=== PATIENT | male | born 1955 | race Caucasian/White ===

== ENCOUNTER 2019-03-07 07:23 | Day surgery (SDC) | payer BC ==
[2019-03-06 09:55] LABS: Absolute Lymphocytes (CBC) 1.5 K/uL (0.7-4.9); Absolute Monocytes 0.6 K/uL (0.1-1.3); Absolute Neutrophil 5.5 K/uL (1.8-8.0); Eosinophils % 1.6 % (0-4.4); Hematocrit 43.3 % (39.6-49.0); Lymphocytes % 19.1 % (15.3-44.8); MPV 8.5 fL (7.6-11.3); Monocytes % 8.3 % (3.3-12.3); RBC Red Blood Cell Count 4.85 M/uL (4.33-5.43)
[2019-03-06 09:57] LABS: Protime INR 1.19
[2019-03-06 10:17] LABS: Potassium 4.5 mmol/L (3.5-5.1)
--- NOTE | 2019-03-06 10:31 | RAD REPORT ---
EXAM DESCRIPTION: RAD - Chest Pa And Lat (2 Views) - 03/06/2019 10:05 am CLINICAL HISTORY: left heart cath Chest pain. COMPARISON: Chest Pa And Lat (2 Views) dated 05/19/2017; CHEST PA AND LAT 2 VIEW dated 08/17/2008; [facility] SINGLE VIEW dated 08/17/2008; CHEST PA AND LAT 2 VIEW dated 08/13/2008 FINDINGS: The lungs are emphysematous but clear of acute infiltrate. The heart is moderately enlarge d in size. No displaced fractures. IMPRESSION: Prominent COPD.
--- OUTSIDE RECORDS SUMMARY | 2019-03-07 07:27 | XMS REPORT | Clinical Summary ---
:1955 Author Organization [facility] Address [address] [place] [address] Care Team Providers Name Role Phone Jarad Jiménez MD Primary Care Provider Allergies Active Allergy Reactions Severity Noted Date Comments Hydrocodone Rash Low 04/19/2016 Medications Medication Sig Dispensed Refills Start End Status Date Date acetaminophen-codeine TAKE 1 TABLET BY 0 Active (TYLENOL WITH CODEINE MOUTH EVERY 4 HOURS 018 #3) 300-30 mg per NEEDED FOR PAIN NO tablet ALCOHOL albuterol (PROAIR ProAir HFA 90 mcg/actuation aerosol inhaler 0 Active HFA,PROVENTIL INHALE 2 PUFFS BY MOUTH EVERY 6 HOURS NEEDED HFA,VENTOLIN HFA) 90 mcg/actuation inhaler apixaban (ELIQUIS) Take 5 mg by mouth. 0 Active 2.5 mg tablet atorvastatin Take 40 mg by mouth. 0 Active (LIPITOR) 40 MG tablet DULoxetine (CYMBALTA) duloxetine 60 mg capsule,delayed release 0 Active 60 MG capsule TAKE 1 CAPSULE BY MOUTH EVERY MORNING furosemide (LASIX) 40 TAKE 1 TABLET BY 0 Active mg tablet MOUTH EVERY DAY IN 018 THE MORNING hydroCHLOROthiazide hydrochlorothiazide 0 Active (HYDRODIURIL) 25 MG 25 mg tablet tablet losartan (COZAAR) 100 TAKE 1 TABLET BY 1 Active MG tablet MOUTH EVERY DAY IN 018 THE MORNING montelukast Take 10 mg by mouth 3 Active (SINGULAIR) 10 mg every morning. 018 tablet rosuvastatin Take 20 mg by mouth 0 Active (CRESTOR) 20 MG daily. tablet methocarbamol Take 1 tablet (750 mg 90 tablet 0 09/26/2 10/23 Discontinued (ROBAXIN-750) 750 MG total) by mouth every tablet 8 (eight) hours for 30 days. traMADol (ULTRAM) 50 Take 1 tablet (50 mg 30 tablet 0 09/26/10/05 Discontinued mg tablet total) by mouth every 6 (six) hours as needed for moderate pain for up to 10 days. traMADol (ULTRAM) 50 Take 1 tablet (50 mg 30 tablet 0 10/12/10/22 mg tablet total) by mouth every 6 (six) hours as needed for moderate pain for up to 10 days. methocarbamol TAKE 1 TABLET (750 MG 90 tablet 0 10/23/11/22 (ROBAXIN) 750 MG TOTAL) BY MOUTH EVERY tablet 8 (EIGHT) HOURS FOR 30 DAYS. traMADol (ULTRAM) 50 Take 1 tablet (50 mg 40 tablet 0 11/03 mg tablet total) by mouth every 4 (four) hours as needed for moderate pain for up to 40 doses. acetaminophen-codeine Take 1-2 tablets by 30 tablet 0 11/13/2 11/13 Discontinued (TYLENOL WITH CODEINE mouth every 4 (four) #3) 300-30 mg per hours as needed for tablet moderate pain for up to 14 days. acetaminophen-codeine Take 1-2 tablets by 30 tablet 0 11/13/11/27 (TYLENOL WITH CODEINE mouth every 4 (four) #3) 300-30 mg per hours as needed for tablet moderate pain for up to 30 doses. methylPREDNISolone Take 1 tablet (4 mg 21 tablet 0 12/11/12/17 (MEDROL DOSEPAK) 4 mg total) by mouth See tablet Admin Instructions for 6 days. Use as directed by package instructions Active Problems Problem Noted Date Closed fracture of proximal end of left humerus with routine healing 2018 Closed displaced fracture of surgical neck of left humerus 09/26/2018 Encounters Date Type Specialty Care Team Description 12/11/2018 Office Visit Orthopedic Surgery Nelson Grady Closed fracture of MD Rafael proximal end of left humerus with routine healing, unspecified fracture morphology, subsequent encounter (Primary Dx) 11/13/2018 Office Visit Orthopedic Surgery Nelson Grady Closed fracture of MD Rafael proximal end of left humerus with routine healing, unspecified fracture morphology, subsequent encounter (Primary Dx) 10/27/2018 Orders Only Orthopedic Surgery Anna Chen MA 10/23/2018 Refill Orthopedic Surgery Nelson Grady MD 10/16/2018 Office Visit Orthopedic Surgery Nelson Grady Left shoulder pain, unspecified chronicity (Primary Dx); MD Rafael Closed fracture of proximal end of left humerus with routine healing, unspecified fracture morphology, subsequent encounter 10/05/2018 Refill Orthopedic Surgery Nelson Grady MD 09/26/2018 Hospital Encounter Radiology Nelson Grady MD 09/26/2018 Office Visit Orthopedic Surgery Nelosn Grady Closed displaced fracture of surgical neck of left humerus, unspecified fracture morphology, initial encounter (Primary Dx); MD Rafael Left elbow pain; Acute pain of left shoulder after 03/06/2018 Family History Medical History Relation Name Comments Diabetes Father Diabetes Mother Relation Name Status Comments Father Alive Mother Alive Social History Tobacco Use Types Packs/Day Years Used Date Current Every Day Smoker Cigarettes 0.25 Smokeless Tobacco: Never Used Alcohol Use Drinks/Week oz/Week Comments Yes 2 Cans of beer 1.2 Alcohol Habits Answer Date Recorded How often do you have a drink containing alcohol? Never 09/26/2018 How many drinks containing alcohol do you have on a typical Not asked day when you are drinking? How often do you have six or more drinks on one occasion? Not asked Sex Assigned at Date Recorded Not on file Job Start Date Occupation Industry Not on file Not on file Not on file Travel History Travel Start Travel End No recent travel history available. Last Filed Vital Signs Vital Sign Reading Time Taken Blood Pressure - - Pulse - - Temperature - - Respiratory Rate - - Oxygen Saturation - - Inhaled Oxygen Concentration - - Weight 147 kg (323 lb) 12/11/2018 1:47 PM [employer] Height 193 cm (6' 4") 12/11/2018 1:47 PM [employer] Body Mass Index 39.32 12/11/2018 1:47 PM [employer] Plan of Treatment Health Maintenance Due Date Last Done Comments COLON CANCER SCREENING 2007 SHINGLES VACCINES (#1) 2007 INFLUENZA VACCINE 05/10/2019 08/10/2015 Procedures Procedure Name Priority Date/Time Associated Comments Diagnosis KS ARTHROCENTESIS Routine 11/13/2018 2:10 Closed fracture of Results for this ASPIR&/INJ MAJOR PM [employer] proximal end of procedure are in JT/BURSA W/O US left humerus with the results routine healing, section. unspecified fracture morphology, subsequent encounter XR SHOULDER 2+ VW LEFT Routine 11/13/2018 1:17 Closed fracture of Results for this PM [employer] proximal end of procedure are in left humerus with the results routine healing, section. unspecified fracture morphology, subsequent encounter XR SHOULDER 2+ VW LEFT Routine 10/16/2018 2:01 Left shoulder pain, Results for this PM [employer] unspecified procedure are in chronicity the results section. XR SHOULDER 2+ VW LEFT Routine 09/26/2018 2:29 Acute pain of left Results for this PM [employer] shoulder procedure are in the results section. XR ELBOW 3+ VW LEFT Routine 09/26/2018 2:28 Left elbow pain Results for this PM [employer] procedure are in the results section. XR UPPER EXTREMITY Routine 09/14/2018 3:42 Results for this EXTERNAL STUDY PM [employer] procedure are in the results section. after 03/06/2018 Results Large Joint Arthrocentesis: shoulder, L subacromial bursa (11/13/2018 2:10 PM [employer]) Narrative Performed At Nelson Grady MD 11/14/20184:55 PM Large Joint Arthrocentesis: shoulder, L subacromial bursa Consent given by: patient Site marked: site marked Timeout: Immediately prior to procedure a time out was called to verify the correct patient, procedure, equipment, senior administrator support and site/side marked as required Supporting Documentation Indications: pain Procedure Details Preparation: Patient was prepped and draped in the usual sterile fashion Ultrasound guided: no Location: shoulder - L subacromial bursa Left side: Needle size: 22 G Approach: posterior Left shoulder medications administered: 80 mg methylPREDNISolone acetate 40 mg/mL; 2 mL lidocaine 10 mg/mL (1 %); 2 mL bupivacaine 0.5 % (5 mg/mL) Patient tolerance: patient tolerated the procedure well with no immediate complications XR Shoulder 2+ Vw Left (11/13/2018 1:17 PM [employer])Only the most recent of3 resultswithin the time period is included. Specimen Narrative Performed At X-rays left shoulder reveal a varus impacted surgical neck fracture of the [facility] humerus which is unchanged in position and healing with abundant callus. Performing Organization Address City/State/Zipcode Phone Number [facility] [address] [place] [address] XR Elbow 3+ Vw Left (09/26/2018 2:28 PM [employer]) Specimen Narrative Performed At X-rays of the left elbow reveal no obvious fracture or dislocation. [facility] Performing Organization Address City/[facility]/Zipcode Phone Number DIAS[facility] BROWNANT [address] [place] [address] XR Upper Extremity External Study (09/14/2018 3:42 PM [employer]) Specimen Narrative Performed At This exam was not acquired at a [facility] facility and has not been [facility] interpreted by a [facility] Provider.The exam was imported into our imaging system for comparisons purposes. Performing Organization Address City/[facility] Phone Number [facility] [address] [place] [address] after 03/06/2018 Insurance Payer Benefit Plan / Subscriber ID Effective Dates Phone Address Type Group MEDICARE MEDICARE PART A xxxxxxxxxxx 2018-Present [place], [place] Medicare AND B BCBS BCBS CHOICE xxxxxxxxxxxx 2018-Present PPO PPO/[employer] PPO Advance Directives Patient has advance care planning documents on file. For more information, please contact:Diogenes Richards[address] [place] [address]
--- OUTSIDE RECORDS SUMMARY | 2019-03-07 07:29 | XMS REPORT | CCD ---
:1955 Author Organization [facility] Team Providers Name Role Phone Delmar [employer] Provider Allergies, Adverse Reactions, Alerts Substance Reaction Status NKDA Active
--- OUTSIDE RECORDS SUMMARY | 2019-03-07 07:29 | XMS REPORT | Continuity of Care Document ---
:1955 Author Organization Interface Problems Problem Status Onset Classification Date Comments Source Date Reported CARAL TUNNEL Active 02/05/20 [facility] CARAL TUNNEL Active 02/05/20 [facility] NEW ONSET A FIB Active 11/26/19 [facility] W/CHEST PAIN [address] [place] [address] 729.5 - PAIN IN Active 02/01/20 [facility] Asthma Resolved Problem 10/16/2016 [facility] [place] Diabetes Resolved Problem 10/16/2016 [facility] [place] Hypertension Resolved Problem 10/16/2016 [facility] [place] CHEST PAIN NOS Active [facility] CARPAL TUNNEL Active [facility] RIGHT HAND Active [facility] [place] NERVE DAMAGE [place] Medications Medication Details Route Status Patient Ordering Order Source Instructions Provider Date rivaroxaban 20 mg, 1 tab, Inactive 11/28[facility] Route: PO, 2014 Medical Drug form: Center TAB, QPM, Start date: 11/28/14 17:00:00, Duration: 30 day, Stop date: 12/27/14 17:00:00Notes: (Same as: Xarelto) Administer with food albuterol CFC free 1 puff, Active 11/28[facility] 90 mcg/inh INHALATION, 2015 Medical inhalation aerosol Q4H, for Center with adapter wheezing, # 1 ea, 3 Refill(s) benzocaine-menthol 1 lozenge, Inactive 11/28[facility] topical Route: MUCOUS 2015 Medical MEM, Drug [place] Form: CARLOS, Q4H, PRN Cough, Start date: 11/28/14 11:57:00, Duration: 30 day, Stop date: 12/28/14 11:56:00Notes: Cepacol lozenges Dispense 1 box=16 lozenges (Same As: Cepacol Lozenges) rivaroxaban 20 mg 20 mg=1 tab, Active [place] oral tablet PO, QPM, # 30 2014 Medical tab, 3 Center Refill(s) 24 HR Metoprolol 50 mg=1 tab, Active [facility] Tartrate 50 MG PO, BID, # 60 2014 Medical Extended Release tab, 3 Center Tablet [Toprol] Refill(s) lisinopril 5 mg oral 5 mg=1 tab, Active [facility] tablet PO, Daily, # 2014 Medical 30 tab, 3 Center Refill(s) Hydrochlorothiazide 25 mg=1 tab, Active [place] 25 MG Oral Tablet PO, Daily, # 2015 Medical 30 tab, 3 Center Refill(s) Aspirin 81 MG 81 mg=1 tab, Active [facility] Enteric Coated PO, Daily, # 2014 Medical Tablet 30 tab, 3 Center Refill(s) atorvastatin 40 mg 40 mg=1 tab, Active [facility] oral tablet PO, Bedtime, # 2014 Medical 30 tab, 3 Center Refill(s) Guaifen DM 1 tab, Route: Inactive [facility] PO, Dosing 2014 Medical Weight Center 134.318, kg, Q4H, PRN as needed for cough, Start date: 11/28/14 11:45:00, Duration: 30 day, Stop date: 12/28/14 11:44:00 Hydrochlorothiazide 25 mg, 1 tab, Inactive [facility] Route: PO, 2014 Medical Drug form: Center TAB, Daily, Dosing Weight 134.318, kg, Start date: 11/28/14 10:30:00, Duration: 30 day, Stop date: 12/28/14 9:00:00Notes: (Same as: Hydrodiuril) With food. Xarelto 20 mg, Route: Inactive [facility] PO, QPM, 2014 Medical Dosing Weight Center 134.318, kg, Priority: NOW, Start date: 11/28/14 9:44:00, Duration: 30 day, Stop date: 12/27/14 17:00:00 Magnesium Oxide 500 500 mg, Route: No Longer [place] MG Oral Tablet PO, Drug form: Active 2014 Medical TAB, Daily, Center Dosing Weight 134.318, kg, Start date: 11/28/14 9:00:00, Duration: 30 day, Stop date: 12/27/14 9:00:00 Furosemide 20 MG 20 mg, 1 tab, Inactive [facility] Oral Tablet [Lasix] Route: PO, 2014 Medical Drug form: [place] TAB, QAM, Dosing Weight 134.318, kg, Start date: 11/28/14 9:00:00, Duration: 30 day, Stop date: 12/27/14 9:00:00Notes: (Same as: Lasix) May cause GI upset. Give with food or milk. 24 HR Metoprolol 50 mg, 1 tab, Inactive [facility] Tartrate 50 MG Route: PO, 2014 Medical Extended Release Drug form: [place] Tablet [Toprol] ERTAB, BID, Start date: 11/28/14 9:00:00, Duration: 30 day, Stop date: 12/27/14 17:00:00Notes: (Same as: Toprol XL) May split tab, but do not crush. Mag-Ox 400 400 mg, 1 tab, Inactive [facility] Route: PO, 2014 Medical Drug form: [place] TAB, ONCE, Start date: 11/27/14 10:28:00, Stop date: 11/27/14 10:28:00Notes: (Same as: Mag-Ox 400) Magnesium oxide [id number] elemental magnesium Dose=____mg magnesium oxide (___mg elemental magnesium) Magnesium Oxide 500 500 mg, Route: Inactive [facility] MG Oral Tablet PO, Drug form: 2014 Medical TAB, ONCE, [facility] Dosing Weight 134.318, kg, Start date: 11/27/14 10:23:00, Stop date: 11/27/14 10:23:00 Lasix 20 mg, 2 mL, Inactive [facility] Route: IVP, 2014 Medical Drug form: [facility] INJ, ONCE, Dosing Weight 134.318, kg, Start date: 11/27/14 10:20:00, Stop date: 11/27/14 10:20:00Notes: (Same as: Lasix) heparin additive 500 mL, Rate: No Longer [facility] 25,000 unit [14 29.96 ml/hr, Active 2014 Medical unit/kg/hr] + Premix Infuse over: [facility] Diluent Dextrose 5% 16.7 hr, 500 mL Route: IV, Dosing Weight 107 kg, Total Volume: 500 mL, Start date: 11/27/14 10:14:00, Duration: 30 day, Stop date: 12/27/14 10:13:00 aspirin 81 mg, 1 tab, No Longer [facility] Route: PO, Active 2014 Medical Drug form: [place] ECTAB, Daily, Dosing Weight 134.318, kg, Priority: Routine, Start date: 11/27/14 9:00:00, Duration: 30 day, Stop date: 12/26/14 9:00:00Notes: Do not crush or chew. (Same As: Ecotrin) Dextromethorphan 10 mL, Route: No Longer [facility] Hydrobromide 2 MG/ML PO, Dosing Active 2014 Medical / Guaifenesin 40 Weight Center MG/ML Oral Solution 134.318, kg, Q4H, Start date: 11/27/14 0:00:00, Duration: 30 day, Stop date: 12/26/14 20:00:00 Dextromethorphan 10 mL, Route: No Longer [facility] Hydrobromide 2 MG/ML PO, Drug Form: Active 2014 Medical / Guaifenesin 40 SYRP, Dosing Center MG/ML Oral Solution Weight 134.318, kg, Q4H, PRN Cough, Start date: 11/26/14 23:00:00, Stop date: 12/26/14 23:59:00Notes: (dextromethorp modi-guaifenesi n 10-100mg/5ml 10 ml oral SOLN ud) (Same as: Robitussin DM) codeine-guaiFENesin 5 mL, Route: Inactive [facility] PO, Drug Form: 2014 Medical LIQ, Q6H, PRN Center Cough, Start date: 11/26/14 20:20:39, Stop date: 12/26/14 20:14:00Notes: (Same As: Louisitussin AC) codeine-guaiFENesin 5 mL, Route: Inactive [facility] PO, Drug Form: 2014 Medical LIQ, Q6H, PRN Center Cough, Start date: 11/26/14 20:15:00, Duration: 30 day, Stop date: 12/26/14 20:14:00Notes: (Same As: Robitussin AC) benzonatate 200 mg, Route: Inactive [place] PO, Drug form: 2014 Medical CAP, TID, Center Dosing Weight 134.318, kg, PRN Cough, Start date: 11/26/14 20:09:00, Duration: 30 day, Stop date: 12/26/14 20:08:00 Robitussin-DM 10 mL, Route: Inactive [place] PO, Drug Form: 2014 Medical SYRP, Q6H, PRN Center Cough, Start date: 11/26/14 17:17:00, Duration: 30 day, Stop date: 12/26/14 17:16:00Notes: (dextromethorp modi-guaifenesi n 10-100mg/5ml 10 ml oral SOLN ud) (Same as: Robitussin DM) Dextromethorphan / 30 mg, Route: Inactive [place] Phenylephrine PO, Drug form: 2014 Medical CAP, Q8H, Center Dosing Weight 134.318, kg, PRN Cough, Start date: 11/26/14 16:41:00, Duration: 30 day, Stop date: 12/26/14 16:40:00 heparin, porcine 7,500 unit, No Longer [place] 1.5 mL, Route: Active 2014 Medical SUB-Q, Drug Center form: INJ, Q8H, Dosing Weight 134.318, kg, Start date: 11/26/14 16:00:00, Duration: 30 day, Stop date: 12/26/14 8:00:00Notes: porcine heparin Xopenex 0.63 mg, 3 mL, No Longer [place] Route: NEB, Active 2014 Medical Drug form: Center SOLN, PRN, Dosing Weight 134.318, kg, PRN Respiratory Protocol, Start date: 11/26/14 15:58:00, Duration: 30 day, Stop date: 12/26/14 16:57:00Notes: SEE RT DOCUMENTATION (Same as:Xopenex) Non-Formulary Ipratropium 0.5 mg, 2.5 No Longer [place] mL, Route: Active 2014 Medical NEB, Drug Center form: SOLN, PRN, Dosing Weight 134.318, kg, PRN Respiratory Protocol, Start date: 11/26/14 15:58:00, Duration: 30 day, Stop date: 12/26/14 16:57:00Notes: SEE RT DOCUMENTATION (Same as:Atrovent) Lisinopril 5 mg, 1 tab, Inactive [place] Route: PO, 2014 Medical Drug form: Center TAB, ONCE, Dosing Weight 134.318, kg, Priority: NOW, Start date: 11/26/14 15:53:00, Stop date: 11/26/14 15:53:00Notes: (Same as: Prinivil, Zestril) Adenosine 112.8271 mg, Inactive [place] 37.61 mL, 2014 Medical Route: IVP, [facility] Drug form: INJ, ONCE, Dosing Weight 134.318, kg, Priority: Routine, Start date: 11/26/14 15:50:00, Stop date: 11/26/14 15:50:00Notes: For diagnostic use only. (Same as: Adenoscan) Tylenol 650 mg, 2 tab, No Longer [place] Route: PO, Active 2014 Medical Drug form: [facility] TAB, Q6H, Dosing Weight 134.318, kg, PRN Pain Score 1-3, Start date: 11/26/14 14:26:00, Duration: 30 day, Stop date: 12/26/14 14:25:00Notes: Do not exceed 4 gm/day. (Same as: Tylenol) Lipitor 80 mg, 1 tab, No Longer [facility] Route: PO, Active 2014 Medical Drug form: Center TAB, Bedtime, Dosing Weight 134.318, kg, Priority: NOW, Start date: 11/26/14 12:56:00, Duration: 30 day, Stop date: 12/25/14 21:00:00Notes: Same as Lipitor Albuterol 0.833 3 ml, Route: Inactive [facility] MG/ML / Ipratropium INHALATION, 2014 Medical Elfrida 0.167 MG/ML Drug Form: [facility] Inhalant Solution SOLN, Dosing [DuoNeb] Weight 134.318, kg, PRN, PRN Respiratory Protocol, Start date: 11/26/14 12:51:00, Duration: 30 day, Stop date: 12/26/14 13:50:00Notes: (Same as: Duoneb) Lisinopril 5 mg, 1 tab, No Longer [place] Route: PO, Active 2014 Medical Drug form: Center TAB, Daily, Dosing Weight 134.318, kg, Priority: NOW, Start date: 11/26/14 12:51:00, Stop date: 12/26/14 9:00:00Notes: (Same as: Prinivil, Zestril) metoprolol tartrate 25 mg, 1 tab, No Longer [place] Route: PO, Active 2014 Medical Drug form: [place] TAB, Q6H, Dosing Weight 134.318, kg, Priority: NOW, Start date: 11/26/14 12:51:00, Stop date: 12/26/14 12:00:00Notes: (Same as: Lopressor) atorvastatin 80 mg, 1 tab, Inactive [place] Route: PO, 2014 Medical Drug form: Center TAB, Bedtime, Dosing Weight 134.318, kg, Priority: NOW, Start date: 11/26/14 12:51:00, Duration: 30 day, Stop date: 12/25/14 21:00:00Notes: Same as Lipitor aspirin 81 mg, Route: Inactive [facility] PO, Drug form: 2014 Medical ECTAB, Daily, Center Dosing Weight 134.318, kg, Priority: NOW, Start date: 11/26/14 12:51:00, Duration: 30 day, Stop date: 12/26/14 9:00:00 Albuterol 0.09 1 puff, No Longer [place] MG/ACTUAT Inhalant INHALATION, Active 2014 Medical Solution QID, wheezing, Center # 1 ea, 0 Refill(s) Allergies, Adverse Reactions, Alerts Substance Category Reaction Severity Reaction Status Date Comments Source type Reported HYDROcodone Assertion Drug Active [facility] allergy [place] Immunizations Immunization Date Given Site Status Last Updated Comments Source Results Order Name Results Value Reference Date Interpretation Comments Source Range CHEM PANEL Phosphorus 3.5 mg/dL 2.5 - 4.5 11/28 [facility] Center CHEM PANEL Magnesium Lvl 1.9 mg/dL 1.8 - 2.4 11/28 [facility] ELECTROLYTE AGAP 10.3 meq/L 10.0 - 11/28 [facility] S 20.0 [facility] ELECTROLYTE Calcium Lvl 8.4 mg/dL 8.5 - 10.5 11/28 [facility] ELECTROLYTE eGFR 99 11/28 1Result Comment: The eGFR is calculated using the CKD-EPI formula. In most young, healthy individuals the eGFR will be > 90 mL/min/1.73m2. The eGFR declines with age. An eGFR of 60-89 may be normal in [facility] mL/min/1.7 some populations, particularly the elderly, for whom the CKD-EPI formula has not been extensively validated. Use of the eGFR is not recommended in the following populations: [address] Individuals with unstable creatinine concentrations, including patients and those with serious co-morbid conditions. Patients with extremes in muscle mass or diet. The data above are obtained from the National Kidney Disease Education Program (NKDEP) which additionally recommends that when the eGFR is used in patients with extremes of body mass index for purposes of drug dosing, the eGFR should be multiplied by the estimated BMI. ELECTROLYTE CO2 27 meq/L 24 - 32 11/28 [facility] ELECTROLYTE Chloride Lvl 106 meq/L 95 - 109 11/28 [facility] ELECTROLYTE Potassium Lvl 4.3 meq/L 3.5 - 5.1 11/28 [facility] ELECTROLYTE Creatinine 0.8 mg/dL 0.5 - 1.4 11/28 [facility] ELECTROLYTE Sodium Lvl 139 meq/L 135 - 145 11/28 [facility] ELECTROLYTE BUN 18 mg/dL 7 - 22 11/28 [facility] ELECTROLYTE Glucose Lvl 132 mg/dL 70 - 99 11/28 4Interpretive Data: Adult reference range values reflect the clinical guidelines [facility] of [employer]. [facility] HEMATOLOGY PTT 54.7 s 22.9 - 11/28 11Interpretiv [facility] 35.8 e Data: [facility] Therapeutic Range: 57 - 92 Seconds HEMATOLOGY Segs 63.9 % 45.0 - 11/28 [facility] 75.0 [facility] HEMATOLOGY Eosinophils 1.5 % 0.0 - 4.0 11/28 [facility] HEMATOLOGY Monocytes 8.1 % 2.0 - 12.0 11/28 [facility] HEMATOLOGY Basophils 1.1 % 0.0 - 1.0 11/28 [facility] HEMATOLOGY Eosinophils # 0.1 K/CMM 0.0 - 0.5 11/28 [facility] HEMATOLOGY Monocytes # 0.6 K/CMM 0.0 - 0.8 11/28 [facility] HEMATOLOGY Lymphocytes 25.4 % 20.0 - 11/28 40.0 [facility] HEMATOLOGY Basophils # 0.1 K/CMM 0.0 - 0.2 11/28 [facility] HEMATOLOGY Lymphocytes # 1.9 K/CMM 1.0 - 5.5 11/28 [facility] HEMATOLOGY Segs-Bands # 4.8 K/CMM 1.5 - 8.1 11/28 [facility] HEMATOLOGY MPV 8.9 fL 7.4 - 10.4 11/28 [facility] HEMATOLOGY Platelet 178 K/CMM 133 - 450 11/28 [facility] HEMATOLOGY RDW 16.5 % 11.5 - 11/28 14.5 [facility] HEMATOLOGY Hgb 14.1 g/dL 14.0 - 11/28 18.0 [facility] HEMATOLOGY MCHC 33.4 g/dL 32.0 - 11/28 36.0 [facility] HEMATOLOGY MCH 30.3 pg 27.0 - 11/28 31.0 [facility] HEMATOLOGY RBC 4.65 M/CMM 4.70 - 11/28 6.10 [facility] HEMATOLOGY WBC 7.5 K/CMM 3.7 - 10.4 11/28 [facility] HEMATOLOGY MCV 90.9 fL 80.0 - 11/28 94.0 [facility] HEMATOLOGY Hct 42.3 % 42.0 - 11/28 54.0 [facility] HEMATOLOGY INR 1.07 0.85 - 11/28 8Interpretive Data: RECOMMENDED RANGES FOR PROTIME INR: [facility] 1. 2.0-3.0 for most medical and surgical thromboembolic states. Medical 2.5-3.5 for artificial heart valves and recurrent embolism. Center INR SHOULD BE USED ONLY FOR PATIENTS ON STABLE ANTICOAGULANT THERAPY. HEMATOLOGY PT 13.9 s 12.0 - 11/28 [facility] 14.7 [facility] PARATHYROID Ca Ion WB 1.12 1.05 - 11/28 [facility] PROFILE mMol/L 1. [facility] PARATHYROID Ca Norm WB 1.10 1.05 - 11/28 [facility] PROFILE mMol/L 1. [facility] HEMATOLOGY PTT 66.5 s 22.9 - 11/28 12Interpretiv [facility] 35.8 e Data: [facility] Heparin [place] Therapeutic Range: 57 - 92 Seconds HEMATOLOGY PTT 71.0 s 22.9 - 11/27 13Interpretiv [facility] 35.8 e Data: [facility] Therapeutic Range: 57 - 92 Seconds HEMATOLOGY INR 1.08 0.85 - 11/27 9Interpretive Data: RECOMMENDED RANGES FOR PROTIME INR: [facility] . 2.0-3.0 for most medical and surgical thromboembolic states. Medical 2.5-3.5 for artificial heart valves and recurrent embolism. Center INR SHOULD BE USED ONLY FOR PATIENTS ON STABLE ANTICOAGULANT THERAPY. HEMATOLOGY PT 14.1 s 12.0 - 11/27 [facility] 14.7 [facility] CARDIAC Troponin-T null 0.000 - 11/27 [facility] ENZYMES 0.100 /2014 [facility] CARDIAC Total CK 60 unit/L 12 - 191 11/27 [facility] ENZYMES /2014 [facility] CARDIAC Troponin-I null 0.00 - 11/27 [facility] ENZYMES 0.40 [facility] CHEM PANEL Phosphorus 4.2 mg/dL 2.5 - 4.5 11/27 [facility] CHEM PANEL Magnesium Lvl 1.8 mg/dL 1.8 - 2.4 11/27 [facility] ELECTROLYTE AGAP 10.5 meq/L 10.0 - 11/27 [facility] S 20.0 [facility] ELECTROLYTE eGFR 83 11/27 2Result Comment: The eGFR is calculated using the CKD-EPI formula. In most young, healthy individuals the eGFR will be > 90 mL/min/1.73m2. The eGFR declines with age. An eGFR of 60-89 may be normal in [facility] mL/min/1. some populations, particularly the elderly, for whom the CKD-EPI formula has not been extensively validated. Use of the eGFR is not recommended in the following populations: Medical 3m2 Center Individuals with unstable creatinine concentrations, including patients and those with serious co-morbid conditions. Patients with extremes in muscle mass or diet. The data above are obtained from the National Kidney Disease Education Program (NKDEP) which additionally recommends that when the eGFR is used in patients with extremes of body mass index for purposes of drug dosing, the eGFR should be multiplied by the estimated BMI. ELECTROLYTE CO2 26 meq/L 24 - 32 11/27 [facility] ELECTROLYTE Calcium Lvl 8.3 mg/dL 8.5 - 10.5 11/27 [facility] ELECTROLYTE Chloride Lvl 106 meq/L 95 - 109 11/27 [facility] ELECTROLYTE Sodium Lvl 138 meq/L 135 - 145 11/27 [facility] 2014 [facility] ELECTROLYTE BUN 18 mg/dL 7 - 22 11/27 [facility]2014 [facility] ELECTROLYTE Glucose Lvl 130 mg/dL 70 - 99 11/27 5Interpretive Data: Adult reference range values reflect the clinical guidelines [facility] [employer]. [facility] ELECTROLYTE Potassium Lvl 4.5 meq/L 3.5 - 5.1 11/27 [facility] ELECTROLYTE Creatinine 1.0 mg/dL 0.5 - 1.4 11/27 [facility] HEMATOLOGY PT 14.3 s 12.0 - 11/27 [facility] 14.7 [facility] HEMATOLOGY INR 1.10 0.85 - 11/27 10Interpretive Data: RECOMMENDED RANGES FOR PROTIME INR: [facility] . 2.0-3.0 for most medical and surgical thromboembolic states. Medical 2.5-3.5 for artificial heart valves and recurrent embolism. Center INR SHOULD BE USED ONLY FOR PATIENTS ON STABLE ANTICOAGULANT THERAPY. HEMATOLOGY Eosinophils # 0.1 K/CMM 0.0 - 0.5 11/27 [facility] HEMATOLOGY Segs-Bands # 9.2 K/CMM 1.5 - 8.1 11/27 [facility]2014 [facility] HEMATOLOGY Lymphocytes # 0.7 K/CMM 1.0 - 5.5 11/27 [facility]2014 [facility] HEMATOLOGY Monocytes # 0.5 K/CMM 0.0 - 0.8 11/27 2014 [facility] HEMATOLOGY Eosinophils 0.8 % 0.0 - 4.0 11/27 [facility] HEMATOLOGY Monocytes 4.8 % 2.0 - 12.0 11/27 [facility] HEMATOLOGY Lymphocytes 6.7 % 20.0 - 11/27 [place] 40.0 /2014 [facility] HEMATOLOGY Segs 87.7 % 45.0 - 11/27 [place] 75.0 /2014 [facility] HEMATOLOGY MPV 8.9 fL 7.4 - 10.4 11/27 [facility] HEMATOLOGY Platelet 204 K/CMM 133 - 450 11/27 [facility] HEMATOLOGY RDW 16.9 % 11.5 - 11/27 [place] 14.5 /2014 [facility] HEMATOLOGY MCH 30.2 pg 27.0 - 11/27 [place] 31.0 /2014 [facility] HEMATOLOGY MCV 90.9 fL 80.0 - 11/27 [place] 94.0 /2014 [facility] HEMATOLOGY Hct 43.7 % 42.0 - 11/27 [place] 54.0 /2014 [facility] HEMATOLOGY MCHC 33.2 g/dL 32.0 - 11/27 [place] 36.0 [facility] HEMATOLOGY Hgb 14.5 g/dL 14.0 - 11/27 [place] 18.0 [facility] HEMATOLOGY RBC 4.81 M/CMM 4.70 - 11/27 [place] 6.10 /2014 [facility] HEMATOLOGY WBC 10.5 K/CMM 3.7 - 10.4 11/27 [facility] PARATHYROID Ca Norm WB 1.05 1.05 - 11/27 [facility] PROFILE mMol/L 1. [facility] PARATHYROID Ca Ion WB 1.08 1.05 - 11/27 [facility] PROFILE mMol/L 1. [facility] URINE AND UA Color Yellow Yellow 11/26 [facility] *NA* Center (11/26/14 5:04 PM) URINE AND UA Glucose Negative Negative 11/26 [facility] STOOL mg/dL mg/dL /2014 [facility] URINE AND UA Spec Grav 1.012 <=1.030 11/26 [facility] URINE AND UA Turbidity Clear Clear 11/26 [facility] (11/26/14 5:04 PM) [place] URINE AND UA pH 6.0 5.0 - 8.0 11/26 [facility] URINE AND UA Protein 30 mg/dL Negative 11/26 [facility] STOOL mg/dL /2014 [facility] URINE AND UA <=1.0 0.1 - 1.0 11/26 [facility] Urobilinogen mg/dL /2014 [facility] URINE AND UA Sq Epi None Seen 11/26 [facility] /2014 [facility] URINE AND UA WBC 14 /HPF 0 - [address] [facility] /2014 [facility] URINE AND UA Leuk Est Moderate Negative 11/26 [facility] *ABN* [place] (11/26/14 5:04 PM) URINE AND UA RBC 3 /HPF 0 - [address] [facility] /2014 [facility] URINE AND UA Mucus Few /LPF None Seen 11/26 [facility] STOOL /LPF /2014 [facility] URINE AND UA Ketones Negative Negative 11/26 [facility] STOOL mg/dL mg/dL [facility] URINE AND UA Bili Negative Negative 11/26 [facility] *NA* [place] (11/26/14 5:04 PM) URINE AND UA Blood Negative Negative 11/26 [facility] [facility] /2014 [facility] (11/26/14 5:04 PM) [place] URINE AND UA Nitrite Negative Negative 11/26 [facility] (11/26/14 5:04 PM) [place] CARDIAC Total CK 55 unit/L 12 - 191 11/26 [facility] /2014 [facility] CARDIAC Troponin-T null 0.000 - 11/26 [facility] ENZYMES 0.100 /2014 [facility] CARDIAC Troponin-I null 0.00 - 11/26 [facility] ENZYMES 0.40 /2014 [facility] DRUG SCREEN U Methadone Negative Negative 11/26 [facility] *NA* [facility] (11/26/14 1:25 PM) DRUG SCREEN U Propoxyph Negative Negative 11/26 [facility] *NA* [place] (11/26/14 1:25 PM) DRUG SCREEN UDS Note See Note 7 11/26 7Interpretive Data: Drugs reported as positive have not been confirmed by a second method and should be used for medical purposes only. To order Medical *NA* confirmation, contact laboratory. [facility] (11/26/14 1:25 PM) note: Below are cut-off concentrations for all urine drugs of abuse performed in the laboratory. Some drugs listed in the table may not be included in this panel. Description Cut-off concentration Amphetamine 1000 ng/mL Barbiturates 200 ng/mL Benzodiazepines 300 ng/mL Cocaine metabolites 300 ng/mL Opiates 300 ng/mL Phencyclidine 25 ng/mL Propoxyphene 300 ng/mL Marijuana metabolites 50 ng/mL Methadone 300 ng/mL Urine alcohol 20 mg/dL DRUG SCREEN U Benzodia Negative Negative 11/26 [facility]* [facility] (11/26/14 1:25 PM) DRUG SCREEN U Gema Scr Negative Negative 11/26 [facility]* [facility] (11/26/14 1:25 PM) DRUG SCREEN U Cannab Scr Negative Negative 11/26 [facility] (11/26/14 1:25 PM) DRUG SCREEN U Cocaine Scr Negative Negative 11/26 [facility] (11/26/14 1:25 PM) DRUG SCREEN U Amph Scr Negative Negative 11/26 [facility] (11/26/14 1:25 PM) DRUG SCREEN U Opiate Scr Negative Negative 11/26 [facility] (11/26/14 1:25 PM) DRUG SCREEN U Phencyc Scr Negative Negative 11/26 [facility] (11/26/14 1:25 PM) ELECTROLYTE AGAP 11.0 meq/L 10.0 - 11/26 [facility] S 20.0 [facility] ELECTROLYTE eGFR 99 11/26 3Result Comment: The eGFR is calculated using the CKD-EPI formula. In most young, healthy individuals the eGFR will be > 90 mL/min/1.73m2. The eGFR declines with age. An eGFR of 60-89 may be normal in [facility] S mL/min/1.7 /2014 some populations, particularly the elderly, for whom the CKD-EPI formula has not been extensively validated. Use of the eGFR is not recommended in the following populations: [place] [address] [facility] Individuals with unstable creatinine concentrations, including patients and those with serious co-morbid conditions. Patients with extremes in muscle mass or diet. The data above are obtained from the National Kidney Disease Education Program (NKDEP) which additionally recommends that when the eGFR is used in patients with extremes of body mass index for purposes of drug dosing, the eGFR should be multiplied by the estimated BMI. ELECTROLYTE CO2 27 meq/L 24 - 32 11/26 [facility] ELECTROLYTE Calcium Lvl 9.1 mg/dL 8.5 - 10.5 11/26 [facility] ELECTROLYTE Creatinine 0.8 mg/dL 0.5 - 1.4 11/26 [facility] Lvl [facility] ELECTROLYTE Sodium Lvl 136 meq/L 135 - 145 11/26 [facility] ELECTROLYTE Potassium Lvl 4.0 meq/L 3.5 - 5.1 11/26 [facility] ELECTROLYTE Chloride Lvl 102 meq/L 95 - 109 11/26 [facility] ELECTROLYTE BUN 10 mg/dL 7 - 22 11/26 [facility] ELECTROLYTE Glucose Lvl 128 mg/dL 70 - 99 11/26 6Interpretive Data: Adult reference range values reflect the clinical guidelines of the [place] [employer]. [facility] HEMATOLOGY Platelet 185 K/CMM 133 - 450 11/26 [facility] HEMATOLOGY RDW 16.7 % 11.5 - 11/26 14.5 [facility] HEMATOLOGY MPV 8.5 fL 7.4 - 10.4 11/26 [facility] HEMATOLOGY MCHC 33.1 g/dL 32.0 - 11/26 36.0 [facility] HEMATOLOGY RBC 5.17 M/CMM 4.70 - 11/26 [place] 6.10 [facility] HEMATOLOGY Hct 46.9 % 42.0 - 11/26 54.0 [facility] HEMATOLOGY Hgb 15.5 g/dL 14.0 - 11/26 18.0 [facility] HEMATOLOGY MCV 90.7 fL 80.0 - 11/26 [place] 94.0 [facility] HEMATOLOGY MCH 30.0 pg 27.0 - 11/26 31.0 [facility] HEMATOLOGY WBC 7.3 K/CMM 3.7 - 10.4 11/26 [facility] HEMATOLOGY Segs-Bands # 6.7 K/CMM 1.5 - 8.1 11/26 [facility] HEMATOLOGY Basophils 0.1 % 0.0 - 1.0 11/26 [facility] HEMATOLOGY Monocytes 1.4 % 2.0 - 12.0 11/26 [facility] HEMATOLOGY Eosinophils 0.1 % 0.0 - 4.0 11/26 [facility] HEMATOLOGY Lymphocytes 6.3 % 20.0 - 11/26 [facility] 40.0 [facility] HEMATOLOGY Segs 92.1 % 45.0 - 11/26 [facility] 75.0 [facility] HEMATOLOGY Monocytes # 0.1 K/CMM 0.0 - 0.8 11/26 [facility] HEMATOLOGY Lymphocytes # 0.5 K/CMM 1.0 - 5.5 11/26 [facility] LIPIDS VLDL 11 11/26 [facility] LIPIDS Trig 53 mg/dL <=149 11/26 [facility] mg/dL [facility] LIPIDS Chol 162 mg/dL <=199 11/26 [facility] mg/dL [facility] LIPIDS HDL 69 mg/dL >=61 mg/dL 11/26 [facility] LIPIDS CHD Risk 2.35 4.00 - 11/26 [facility] 7.30 [facility] LIPIDS LDL 82 mg/dL <=99 mg/dL 11/26 [facility] (Calculated) [facility] SPECIAL Hgb A1C 5.8 % <=5.6 % 11/26 [facility] CHEMISTRY [facility] THYROID TSH 0.537 0.360 - 11/26 [facility] PANEL uIU/mL 3.740 [facility] Chest 1view Chest 1view EXAM: XR CHEST ONE VIEW: 11/26 - [facility] DX DX /2014 - [facility] This report was dictated by a Track Grinder Operator/Fellow. I have personally reviewed the images as Center well as the Resident's interpretation and agree with the findings. DATE: 2014-11-26 13:24:00 Read by: Dipak Giles MD Resident: Dipak Giles MD Dictated Date/time: 11/26/14 13:59 Electronically Signed by: Dashawn Gusman 11/26/14 17:01 FINAL REPORT INDICATION: Abnormal chest sounds TECHNIQUE: frontal portable chest radiograph COMPARISON: None IMPRESSION: Borderline cardiomegaly. The lungs are clear. There is no pleural effusion or pneumothorax. There is mild rightward curvature of the midthoracic spine. There are multiple healed right-side d rib fractures. Some surgical clips overlie the left upper abdomen. Vital Signs Vital Sign Value Date Comments Source Systolic (mm Hg) 146 11/28/2014 [facility] Diastolic (mm Hg) 81 11/28/2014 [facility] Temperature Oral (F) 96.8 F 11/28/2014 [facility] Systolic (mm Hg) 151 11/28/2014 [facility] Diastolic (mm Hg) 96 11/28/2014 [facility] Systolic (mm Hg) 110 11/28/2014 [facility] Diastolic (mm Hg) 95 11/28/2014 [facility] Temperature Oral (F) 97.3 F 11/28/2014 [facility] Respitory Rate 22 11/28/2014 [facility] Respitory Rate 20 11/28/2014 [facility] Temperature Oral (F) 96.8 F 11/28/2014 [facility] Respitory Rate 18 11/28/2014 [facility] BMI Calculated 35.11 11/26/2014 [facility] Height 195.58 cm 11/26/2014 [facility] Weight 134.318 11/26/2014 [facility] Encounters Location Location Encounter Encounter Reason Attending ADM DC Status Source Details Type Number For Provider Date Date Visit OD [id number] 729.5 - NEREYDA 02/02 Active OPID PAIN [facility] Inpatient [id number] [facility] Sim 11/26 11/28 [facility] /2014 [facility] OP Therapy [id number] [place] 02/04 03/06 [facility] OP Therapy [id number] Nelson 03/09 04/08 [facility] Therapy [id number] Norman 09/14 10/14 [facility] /2015 [place] Procedures Procedure Code Date Perfomer Comments Source Appendectomy [id number] [facility] Cholecystectomy [id number] [facility] Gastric bypass [id number] [id number] [id number] [facility] Cholecystectomy [id number] [facility] Gastric bypass [id number] [facility] Inguinal [id number] [id number] [facility] [place] Cholecystectomy [id number] [facility] [place] Gastric bypass [id number] [facility] [place] Inguinal [id number] [facility] [place] herniorrhaphy [place]
--- OUTSIDE RECORDS SUMMARY | 2019-03-07 07:30 | XMS REPORT | Summary of Care ---
:1955 Author Organization [facility] Address [address] [address] [place] [address]- Encounter HQ Encntr_alias(FIN) [id number] Date(s): 09/14/16 - 10/13/16 [facility] [address] [address]- Discharge Disposition: Home or Self Care Attending Physician: Norman Floyd DO Vital Signs No data available for this section Problem List Condition Effective Dates Status Health Status Informant Asthma(Confirmed) Resolved Diabetes(Confirmed) Resolved Hypertension(Confirmed) Resolved Allergies, Adverse Reactions, Alerts Substance Reaction Severity Status HYDROcodone Active Medications No data available for this section Results No data available for this section Immunizations No data available for this section Procedures Procedure Date Related Diagnosis Body Site Appendectomy Cholecystectomy Gastric bypass Inguinal herniorrhaphy Social History Social History Type Response Substance Abuse Use: None. Sexual Sexually active: Yes. Exercise Exercise duration: 0. Employment/School Status: Employed. 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 Alcohol Current, Type Beer. Frequency: Daily. Alcohol use interferes with work or home: No. Drinks more than intended: No. Others hurt by drinking: No. Smoking Status Current every day smoker; Type: Cigarettes; Tobacco use per day : .5; Number of years: 11; Exposure to Tobacco Smoke None; Cigarette Smoking Last 365 Days Yes; Reg Smoking Cessation Counseling No Assessment and Plan No data available for this section
--- OUTSIDE RECORDS SUMMARY | 2019-03-07 07:30 | XMS REPORT | Summary of Care ---
:1955 Author Encounter YRIS Monk(ANY) [id number] Date(s): 11/26/14 - 11/28/[address] Professional Services provided by [facility] [place] [address]- Discharge Disposition: Home Physician Attending: Eimlie Montemayor MD Physician Admitting: Emilie Montemayor MD Vital Signs Most recent to oldest 1 2 3 [Reference Range]: Height 195.58 cm (11/26/14 11:14 AM) Temperature Oral [96.4-99.1 96.8 DegF 97.3 DegF 96.8 DegF DegF] (11/28/14 11:30 AM) (11/28/14 7:25 AM) (11/28/14 12:00 AM) Blood Pressure [90-140/60-90 146/81 mmHg 151/96 mmHg 110/95 mmHg mmHg] *HI* *HI* (11/28/14 8:00 AM) (11/28/14 12:16 PM) (11/28/14 10:00 AM) Respiratory Rate [14-20 22 BRMIN 20 BRMIN 18 BRMIN BRMIN] *HI* (11/28/14 12:00 AM) (11/27/14 7:25 PM) (11/28/14 4:00 AM) Weight 134.318 kg (11/26/14 11:14 AM) Body Mass Index 35.11 m2 (11/26/14 11:14 AM) Problem List Condition Effective Dates Status Health Status Informant Asthma(Confirmed) Resolved Diabetes(Confirmed) Resolved Hypertension(Confirmed) Resolved Allergies, Adverse Reactions, Alerts Substance Reaction Severity Status HYDROcodone Active Medications adenosine 112.8271 mg, 37.61 mL, Route: IVP, Drug form: INJ, ONCE, Dosing Weight 134.318, kg, Priority: Routine, Start date: 11/26/14 15:50:00, Stop date: 11/26/14 15:50: 00 Notes: For diagnostic use only.(Same as: Adenoscan) Start Date: 11/26/14 Stop Date: 11/26/14 Status: Orderedalbuterol 90 mcg/inh inhalation aerosol 1 puff, INHALATION, QID, wheezing, # 1 ea, 0 Refill(s) Start Date: 11/26/14 Stop Date: 11/28/14 Status: Discontinuedalbuterol CFC free 90 mcg/inh inhalation aerosol with adapter 1 puff, INHALATION, Q4H, for wheezing, # 1 ea, 3 Refill(s) Start Date: 11/28/14 Stop Date: 03/28/15 Status: Orderedaspirin 81 mg, 1 tab, Route: PO, Drug form: ECTAB, Daily, Dosing Weight 134.318, kg, Priority: Routine, Start date: 11/27/14 9:00:00, Duration: 30 day, Stop date: 9:00:00 Notes: Do not crush or chew.(Same As: Ecotrin) Start Date: 11/27/14 Stop Date: 11/28/14 Status: Discontinuedaspirin 81 mg, Route: PO, Drug form: ECTAB, Daily, Dosing Weight 134.318, kg, Priority: NOW, Start date: 11/26/14 12:51:00, Duration: 30 day, Stop date: 12/26/14 9:00: 00 Start Date: 11/26/14 Stop Date: 11/26/14 Status: Discontinuedaspirin 81 mg tablet, enteric coated 81 mg=1 tab, PO, Daily, # 30 tab, 3 Refill(s) Start Date: 11/28/14 Stop Date: 03/28/15 Status: Orderedatorvastatin 80 mg, 1 tab, Route: PO, Drug form: TAB, Bedtime, Dosing Weight 134.318, kg, Priority: NOW, Start date: 11/26/14 12:51:00, Duration: 30 day, Stop date: 12/25 21:00:00 Notes: Same as Lipitor Start Date: 11/26/14 Stop Date: 11/26/14 Status: Discontinuedatorvastatin 40 mg oral tablet 40 mg=1 tab, PO, Bedtime, # 30 tab, 3 Refill(s) Start Date: 11/28/14 Stop Date: 03/28/15 Status: Orderedbenzocaine-menthol topical 1 lozenge, Route: MUCOUS MEM, Drug Form: CARLOS, Q4H, PRN Cough, Start date: 11:57:00, Duration: 30 day, Stop date: 12/28/14 11:56:00 Notes: Cepacol lozengesDispense 1 box=16 lozenges (Same As: Cepacol Lozenges) Start Date: 11/28/14 Stop Date: 11/28/14 Status: Discontinuedbenzonatate 200 mg, Route: PO, Drug form: CAP, TID, Dosing Weight 134.318, kg, PRN Cough, Start date: 11/26/14 20:09:00, Duration: 30 day, Stop date: 12/26/14 20:08:00 Start Date: 11/26/14 Stop Date: 11/26/14 Status: Discontinuedcodeine-guaiFENesin 5 mL, Route: PO, Drug Form: LIQ, Q6H, PRN Cough, Start date: 11/26/14 20:15:00, Duration: 30 day, Stop date: 12/26/14 20:14:00 Notes: (Same As: Louisitussin AC) Start Date: 11/26/14 Stop Date: 11/26/14 Status: Discontinuedcodeine-guaiFENesin 5 mL, Route: PO, Drug Form: LIQ, Q6H, PRN Cough, Start date: 11/26/14 20:20:39, Stop date: 12/26/14 20:14:00 Notes: (Same As: Robitussin AC) Start Date: 11/26/14 Stop Date: 11/26/14 Status: Discontinueddextromethorphan 30 mg, Route: PO, Drug form: CAP, Q8H, Dosing Weight 134.318, kg, PRN Cough, Start date: 11/26/14 16:41:00, Duration: 30 day, Stop date: 12/26/14 16:40:00 Start Date: 11/26/14 Stop Date: 11/26/14 Status: Discontinueddextromethorphan-guaiFENesin 10 mg-200 mg/5 mL oral liquid 10 mL, Route: PO, Dosing Weight 134.318, kg, Q4H, Start date: 11/27/14 0:00:00, Duration: 30 day, Stop date: 12/26/14 20:00:00 Start Date: 11/27/14 Stop Date: 11/26/14 Status: Canceleddextromethorphan-guaiFENesin 10 mg-200 mg/5 mL oral liquid 10 mL, Route: PO, Drug Form: SYRP, Dosing Weight 134.318, kg, Q4H, PRN Cough, Start date: 11/26/14 23:00:00, Stop date: 12/26/14 23:59:00 Notes: (dextromethorphan-guaifenesin 10-100mg/5ml 10 ml oral SOLN ud) (Same as: Robitussin DM) Start Date: 11/26/14 Stop Date: 11/28/14 Status: DiscontinuedDuoNeb inhalation solution 3 ml, Route: INHALATION, Drug Form: SOLN, Dosing Weight 134.318, kg, PRN, PRN Respiratory Protocol, Start date: 11/26/14 12:51:00, Duration: 30 day, Stop date : 12/26/14 13:50:00 Notes: (Same as: Duoneb) Start Date: 11/26/14 Stop Date: 11/26/14 Status: DiscontinuedGuaifen DM 1 tab, Route: PO, Dosing Weight 134.318, kg, Q4H, PRN as needed for cough, Start date: 11/28/14 11:45:00, Duration: 30 day, Stop date: 12/28/14 11:44:00 Start Date: 11/28/14 Stop Date: 11/28/14 Status: Deletedheparin 7,500 unit, 1.5 mL, Route: SUB-Q, Drug form: INJ, Q8H, Dosing Weight 134.318, kg , Start date: 11/26/14 16:00:00, Duration: 30 day, Stop date: 12/26/14 8:00:00 Notes: porcine heparin Start Date: 11/26/14 Stop Date: 11/27/14 Status: Discontinuedheparin additive 25,000 unit [14 unit/kg/hr] + Premix Diluent Dextrose 5% 500 mL 500 mL, Rate: 29.96 ml/hr, Infuse over: 16.7 hr, Route: IV, Dosing Weight 107 kg , Total Volume: 500 mL, Start date: 11/27/14 10:14:00, Duration: 30 day, Stop date: 12/27/14 10:13:00 Start Date: 11/27/14 Stop Date: 11/28/14 Status: Discontinuedhydrochlorothiazide 25 mg, 1 tab, Route: PO, Drug form: TAB, Daily, Dosing Weight 134.318, kg, Start date: 11/28/14 10:30:00, Duration: 30 day, Stop date: 12/28/14 9:00:00 Notes: (Same as: Hydrodiuril) With food. Start Date: 11/28/14 Stop Date: 11/28/14 Status: Discontinuedhydrochlorothiazide 25 mg oral tablet 25 mg=1 tab, PO, Daily, # 30 tab, 3 Refill(s) Start Date: 11/28/14 Stop Date: 03/28/15 Status: Orderedipratropium 0.5 mg, 2.5 mL, Route: NEB, Drug form: SOLN, PRN, Dosing Weight 134.318, kg, PRN Respiratory Protocol, Start date: 11/26/14 15:58:00, Duration: 30 day, Stop date: 12/26/14 16:57:00 Notes: SEE RT DOCUMENTATION(Same as:Atrovent) Start Date: 11/26/14 Stop Date: 11/28/14 Status: DiscontinuedLasix 20 mg, 2 mL, Route: IVP, Drug form: INJ, ONCE, Dosing Weight 134.318, kg, Start date: 11/27/14 10:20:00, Stop date: 11/27/14 10:20:00 Notes: (Same as: Lasix) Start Date: 11/27/14 Stop Date: 11/27/14 Status: CompletedLasix 20 mg oral tablet 20 mg, 1 tab, Route: PO, Drug form: TAB, QAM, Dosing Weight 134.318, kg, Start date: 11/28/14 9:00:00, Duration: 30 day, Stop date: 12/27/14 9:00:00 Notes: (Same as: Lasix) May cause GI upset. Give with food or milk. Start Date: 11/28/14 Stop Date: 11/28/14 Status: DiscontinuedLipitor 80 mg, 1 tab, Route: PO, Drug form: TAB, Bedtime, Dosing Weight 134.318, kg, Priority: NOW, Start date: 11/26/14 12:56:00, Duration: 30 day, Stop date: 12/25 21:00:00 Notes: Same as Lipitor Start Date: 11/26/14 Stop Date: 11/28/14 Status: Discontinuedlisinopril 5 mg, 1 tab, Route: PO, Drug form: TAB, Daily, Dosing Weight 134.318, kg, Priority: NOW, Start date:11/26/14 12:51:00, Stop date: 12/26/14 9:00:00 Notes: (Same as: Milton Beestrisandy) Start Date: 11/26/14 Stop Date: 11/28/14 Status: Discontinuedlisinopril 5 mg, 1 tab, Route: PO, Drug form: TAB, ONCE, Dosing Weight 134.318, kg, Priority: NOW, Start date: 11/26/14 15:53:00, Stop date: 11/26/14 15:53:00 Notes: (Same as: Milton Beestril) Start Date: 11/26/14 Stop Date: 11/26/14 Status: Completedlisinopril 5 mg oral tablet 5 mg=1 tab, PO, Daily, # 30 tab, 3 Refill(s) Start Date: 11/28/14 Stop Date: 03/28/15 Status: OrderedMag-Ox 400 400 mg, 1 tab, Route: PO, Drug form: TAB, ONCE, Start date: 11/27/14 10:28:00, Stop date: 11/27/14 10:28:00 Notes: (Same as: Mag-Ox 400)Magnesium oxide [id number] elemental magnesiumDose= ____mg magnesium oxide (___mg elemental magnesium) Start Date: 11/27/14 Stop Date: 11/27/14 Status: Completedmagnesium oxide base 500 mg oral tablet 500 mg, Route: PO, Drug form: TAB, ONCE, Dosing Weight 134.318, kg, Start date: 11/27/14 10:23:00, Stop date: 11/27/14 10:23:00 Start Date: 11/27/14 Stop Date: 11/27/14 Status: Deletedmagnesium oxide base 500 mg oral tablet 500 mg, Route: PO, Drug form: TAB, Daily, Dosing Weight 134.318, kg, Start date : 11/28/14 9:00:00, Duration: 30 day, Stop date: 12/27/14 9:00:00 Start Date: 11/28/14 Stop Date: 11/27/14 Status: Canceledmetoprolol tartrate 25 mg, 1 tab, Route: PO, Drug form: TAB, Q6H, Dosing Weight 134.318, kg, Priority: NOW, Start date: 11/26/14 12:51:00, Stop date: 12/26/14 12:00:00 Notes: (Same as: Lopressor) Start Date: 11/26/14 Stop Date: 11/28/14 Status: Discontinuedrivaroxaban 20 mg, 1 tab, Route: PO, Drug form: TAB, QPM, Start date: 11/28/14 17:00:00, Duration: 30 day, Stop date: 12/27/14 17:00:00 Notes: (Same as: Xarelto)Administer with food Start Date: 11/28/14 Stop Date: 11/28/14 Status: Discontinuedrivaroxaban 20 mg oral tablet 20 mg=1 tab, PO, QPM, # 30 tab, 3 Refill(s) Start Date: 11/28/14 Stop Date: 03/28/15 Status: OrderedRobitussin-DM 10 mL, Route: PO, Drug Form: SYRP, Q6H, PRN Cough, Start date: 11/26/14 17:17:00 , Duration: 30 day, Stop date: 12/26/14 17:16:00 Notes: (dextromethorphan-guaifenesin 10-100mg/5ml 10 ml oral SOLN ud) (Same as: Robitussin DM) Start Date: 11/26/14 Stop Date: 11/26/14 Status: DiscontinuedToprol-XL 50 mg oral tablet, extended release 50 mg=1 tab, PO, BID, # 60 tab, 3 Refill(s) Start Date: 11/28/14 Stop Date: 03/28/15 Status: OrderedToprol-XL 50 mg oral tablet, extended release 50 mg, 1 tab, Route: PO, Drug form: ERTAB, BID, Start date: 11/28/14 9:00:00, Duration: 30 day, Stopdate: 12/27/14 17:00:00 Notes: (Same as: Toprol XL) May split tab, but do not crush. Start Date: 11/28/14 Stop Date: 11/28/14 Status: DiscontinuedTylenol 650 mg, 2 tab, Route: PO, Drug form: TAB, Q6H, Dosing Weight 134.318, kg, PRN Pain Score 1-3, Start date: 11/26/14 14:26:00, Duration: 30 day, Stop date: 14:25:00 Notes: Do not exceed 4 gm/day. (Same as: Tylenol) Start Date: 11/26/14 Stop Date: 11/28/14 Status: DiscontinuedXarelto 20 mg, Route: PO, QPM, Dosing Weight 134.318, kg, Priority: NOW, Start date: 9:44:00, Duration: 30 day, Stop date: 12/27/14 17:00:00 Start Date: 11/28/14 Stop Date: 11/28/14 Status: DeletedXopenex 0.63 mg, 3 mL, Route: NEB, Drug form: SOLN, PRN, Dosing Weight 134.318, kg, PRN Respiratory Protocol, Start date: 11/26/14 15:58:00, Duration: 30 day, Stop date : 12/26/14 16:57:00 Notes: SEE RT DOCUMENTATION (Same as:Xopenex)Non-Formulary Start Date: 11/26/14 Stop Date: 11/28/14 Status: Discontinued Results ELECTROLYTES Most recent to oldest 1 2 3 [Reference Range]: Sodium Lvl [135-145 mEq/L] 139 mEq/L 138 mEq/L 136 mEq/L (11/28/14 4:33 AM) (11/27/14 12:29 AM) (11/26/14 1:25 PM) Potassium Lvl [3.5-5.1 4.3 mEq/L 4.5 mEq/L 4.0 mEq/L mEq/L] (11/28/14 4:33 AM) (11/27/14 12:29 AM) (11/26/14 1:25 PM) Chloride Lvl [95-109 mEq/L] 106 mEq/L 106 mEq/L 102 mEq/L (11/28/14 4:33 AM) (11/27/14 12:29 AM) (11/26/14 1:25 PM) CO2 [24-32 mEq/L] 27 mEq/L 26 mEq/L 27 mEq/L (11/28/14 4:33 AM) (11/27/14 12:29 AM) (11/26/14 1:25 PM) AGAP [10.0-20.0 mEq/L] 10.3 mEq/L 10.5 mEq/L 11.0 mEq/L (11/28/14 4:33 AM) (11/27/14 12:29 AM) (11/26/14 1:25 PM) CHEM PANEL Most recent to oldest 1 2 3 [Reference Range]: Creatinine Lvl [0.5-1.4 0.8 mg/dL 1.0 mg/dL 0.8 mg/dL mg/dL] (11/28/14 4:33 AM) (11/27/14 12:29 AM) (11/26/14 1:25 PM) eGFR 99 mL/min/1.73m2 1 83 mL/min/1.73m2 2 99 mL/min/1.73m2 3 *NA* *NA* *NA* (11/28/14 4:33 AM) (11/27/14 12:29 AM) (11/26/14 1:25 PM) BUN [7-22 mg/dL] 18 mg/dL 18 mg/dL 10 mg/dL (11/28/14 4:33 AM) (11/27/14 12:29 AM) (11/26/14 1:25 PM) Glucose Lvl [70-99 mg/dL] 132 mg/dL 4 130 mg/dL 5 128 mg/dL 6 *HI* *HI* *HI* (11/28/14 4:33 AM) (11/27/14 12:29 AM) (11/26/14 1:25 PM) Calcium Lvl [8.5-10.5 8.4 mg/dL 8.3 mg/dL 9.1 mg/dL mg/dL] *LOW* *LOW* (11/26/14 1:25 PM) (11/28/14 4:33 AM) (11/27/14 12:29 AM) Phosphorus [2.5-4.5 mg/dL] 3.5 mg/dL 4.2 mg/dL (11/28/14 4:33 AM) (11/27/14 12:29 AM) Magnesium Lvl [1.8-2.4 1.9 mg/dL 1.8 mg/dL mg/dL] (11/28/14 4:33 AM) (11/27/14 12:29 AM) 1Result Comment: The eGFR is calculated using the CKD-EPI formula. In most young , healthy individualsthe eGFR will be >90 mL/min/1.73m2. The eGFR declines with age. An eGFR of 60-89 may be normal in some populations, particularly the elderly, for whom the CKD-EPI formula has not been extensively validated. Use of the eGFR is not recommended in the following populations: Individuals with unstable creatinine concentrations, including patients and those with serious co-morbid conditions. Patients with extremes in muscle mass or diet. The data above are obtained from the National Kid[employer] Disease Education Program ( NKDEP) which additionally recommends that when the eGFR is used in patients with extremes of body mass index for purposesof drug dosing, the eGFR should be multiplied by the estimated BMI.2Result Comment: The eGFR is calculated using the CKD-EPI formula. In most young, healthy individualsthe eGFR will be >90 mL/ min/1.73m2. The eGFR declines with age. An eGFR of 60-89 may be normal in some populations, particularly the elderly, for whom the CKD-EPI formula has not been extensively validated. Use of the eGFR is not recommended in the following populations: Individuals with unstable creatinine concentrations, including patients and those with serious co-morbid conditions. Patients with extremes in muscle mass or diet. The data above are obtained from the National Kid[employer] Disease Education Program ( NKDEP) which additionally recommends that when the eGFR is used in patients with extremes of body mass index for purposesof drug dosing, the eGFR should be multiplied by the estimated BMI.3Result Comment: The eGFR is calculated using the CKD-EPI formula. In most young, healthy individualsthe eGFR will be >90 mL/ min/1.73m2. The eGFR declines with age. An eGFR of 60-89 may be normal in some populations, particularly the elderly, for whom the CKD-EPI formula has not been extensively validated. Use of the eGFR is not recommended in the following populations: Individuals with unstable creatinine concentrations, including patients and those with serious co-morbid conditions. Patients with extremes in muscle mass or diet. The data above are obtained from the National Kidney Disease Education Program ( NKDEP) which additionally recommends that when the eGFR is used in patients with extremes of body mass index for purposesof drug dosing, the eGFR should be multiplied by the estimated BMI.4Interpretive Data: Adult reference range values reflect the clinical guidelines of the [place].5Interpretive Data: Adult reference range values reflect the clinical guidelines of the [place].6Interpretive Data: Adult reference range values reflect the clinical guidelines of the [place].CARDIAC ENZYMES Most recent to oldest [Reference Range]: 1 2 3 Total CK [12-191 unit/L] 60 unit/L 55 unit/L (11/27/14 12:29 AM) (11/26/14 1:25 PM) Troponin-T [0.000-0.100 ng/mL] <0.010 ng/mL <0.010 ng/mL (11/27/14 12:29 AM) (11/26/14 1:25 PM) Troponin-I [0.00-0.40 ng/mL] <0.02 ng/mL <0.02 ng/mL (11/27/14 12:29 AM) (11/26/14 1:25 PM) LIPIDS Most recent to oldest [Reference Range]: 1 2 3 CHD Risk [4.00-7.30] 2.35 *LOW* (11/26/14 1:25 PM) Chol [<=199 mg/dL] 162 mg/dL (11/26/14 1:25 PM) Trig [<=149 mg/dL] 53 mg/dL (11/26/14 1:25 PM) HDL [>=61 mg/dL] 69 mg/dL (11/26/14 1:25 PM) LDL (Calculated) [<=99 mg/dL] 82 mg/dL (11/26/14 1:25 PM) VLDL 11 *NA* (11/26/14 1:25 PM) SPECIAL CHEMISTRY Most recent to oldest [Reference Range]: 1 2 3 Hgb A1C [<=5.6 %] 5.8 % *HI* (11/26/14 1:25 PM) THYROID PANEL Most recent to oldest [Reference Range]: 1 2 3 TSH [0.360-3.740 uIU/mL] 0.537 uIU/mL (11/26/14 1:25 PM) PARATHYROID PROFILE Most recent to oldest [Reference Range]: 1 2 3 Ca Ion WB [1.05-1.25 mMol/L] 1.12 mMol/L 1.08 mMol/L (11/28/14 4:33 AM) (11/27/14 12:29 AM) Ca Norm WB [1.05-1.25 mMol/L] 1.10 mMol/L 1.05 mMol/L (11/28/14 4:33 AM) (11/27/14 12:29 AM) DRUG SCREEN Most recent to oldest [Reference Range]: 1 2 3 U Methadone Scr [Negative] Negative *NA* (11/26/14 1:25 PM) U Propoxyph Scr [Negative] Negative *NA* (11/26/14 1:25 PM) U Amph Scr [Negative] Negative *NA* (11/26/14 1:25 PM) U Gema Scr [Negative] Negative *NA* (11/26/14 1:25 PM) U Benzodia Scr [Negative] Negative *NA* (11/26/14 1:25 PM) U Cocaine Scr [Negative] Negative *NA* (11/26/14 1:25 PM) U Opiate Scr [Negative] Negative *NA* (11/26/14 1:25 PM) U Phencyc Scr [Negative] Negative *NA* (11/26/14 1:25 PM) U Cannab Scr [Negative] Negative *NA* (11/26/14 1:25 PM) UDS Note See Note 7 *NA* (11/26/14 1:25 PM) 7Interpretive Data: Drugs reported as positive have not been confirmed by a second method and should be used for medical purposes only. To order confirmation, contact laboratory. note: Below are cut-off concentrations for all urine drugs of abuse performed in the laboratory. Some drugs listed in the table may not be included in this panel. Description Cut-off concentration Amphetamine 1000 ng/mL Barbiturates 200 ng/mL Benzodiazepines 300 ng/mL Cocaine metabolites 300 ng/mL Opiates 300 ng/mL Phencyclidine 25 ng/mL Propoxyphene 300 ng/mL Marijuana metabolites 50 ng/mL Methadone 300 ng/mL Urine alcohol 20 mg/dLURINE AND STOOL Most recent to oldest [Reference Range]: 1 2 3 UA Turbidity [Clear] Clear (11/26/14 5:04 PM) UA Color [Yellow] Yellow *NA* (11/26/14 5:04 PM) UA pH [5.0-8.0] 6.0 (11/26/14 5:04 PM) UA Spec Grav [<=1.030] 1.012 (11/26/14 5:04 PM) UA Glucose [Negative mg/dL] Negative mg/dL *NA* (11/26/14 5:04 PM) UA Blood [Negative] Negative (11/26/14 5:04 PM) UA Ketones [Negative mg/dL] Negative mg/dL *NA* (11/26/14 5:04 PM) UA Protein [Negative mg/dL] 30 mg/dL *ABN* (11/26/14 5:04 PM) UA Urobilinogen [0.1-1.0 mg/dL] <=1.0 mg/dL *NA* (11/26/14 5:04 PM) UA Bili [Negative] Negative *NA* (11/26/14 5:04 PM) UA Leuk Est [Negative] Moderate *ABN* (11/26/14 5:04 PM) UA Nitrite [Negative] Negative (11/26/14 5:04 PM) UA WBC [0-5 /HPF] 14 /HPF *HI* (11/26/14 5:04 PM) UA RBC [0-2 /HPF] 3 /HPF *HI* (11/26/14 5:04 PM) UA Sq Epi None Seen *NA* (11/26/14 5:04 PM) UA Mucus [None Seen /LPF] Few /LPF *NA* (11/26/14 5:04 PM) HEMATOLOGY Most recent to oldest 1 2 3 [Reference Range]: WBC [3.7-10.4 K/CMM] 7.5 K/CMM 10.5 K/CMM 7.3 K/CMM (11/28/14 4:33 AM) *HI* (11/26/14 1:25 PM) (11/27/14 12:29 AM) RBC [4.70-6.10 M/CMM] 4.65 M/CMM 4.81 M/CMM 5.17 M/CMM *LOW* (11/27/14 12:29 AM) (11/26/14 1:25 PM) (11/28/14 4:33 AM) Hgb [14.0-18.0 g/dL] 14.1 g/dL 14.5 g/dL 15.5 g/dL (11/28/14 4:33 AM) (11/27/14 12:29 AM) (11/26/14 1:25 PM) Hct [42.0-54.0 %] 42.3 % 43.7 % 46.9 % (11/28/14 4:33 AM) (11/27/14 12:29 AM) (11/26/14 1:25 PM) MCV [80.0-94.0 fL] 90.9 fL 90.9 fL 90.7 fL (11/28/14 4:33 AM) (11/27/14 12:29 AM) (11/26/14 1:25 PM) MCH [27.0-31.0 pg] 30.3 pg 30.2 pg 30.0 pg (11/28/14 4:33 AM) (11/27/14 12:29 AM) (11/26/14 1:25 PM) MCHC [32.0-36.0 g/dL] 33.4 g/dL 33.2 g/dL 33.1 g/dL (11/28/14 4:33 AM) (11/27/14 12:29 AM) (11/26/14 1:25 PM) RDW [11.5-14.5 %] 16.5 % 16.9 % 16.7 % *HI* *HI* *HI* (11/28/14 4:33 AM) (11/27/14 12:29 AM) (11/26/14 1:25 PM) Platelet [133-450 K/CMM] 178 K/CMM 204 K/CMM 185 K/CMM (11/28/14 4:33 AM) (11/27/14 12:29 AM) (11/26/14 1:25 PM) MPV [7.4-10.4 fL] 8.9 fL 8.9 fL 8.5 fL (11/28/14 4:33 AM) (11/27/14 12:29 AM) (11/26/14 1:25 PM) Segs [45.0-75.0 %] 63.9 % 87.7 % 92.1 % (11/28/14 4:33 AM) *HI* *HI* (11/27/14 12:29 AM) (11/26/14 1:25 PM) Lymphocytes [20.0-40.0 %] 25.4 % 6.7 % 6.3 % (11/28/14 4:33 AM) *LOW* *LOW* (11/27/14 12:29 AM) (11/26/14 1:25 PM) Monocytes [2.0-12.0 %] 8.1 % 4.8 % 1.4 % (11/28/14 4:33 AM) (11/27/14 12:29 AM) *LOW* (11/26/14 1:25 PM) Eosinophils [0.0-4.0 %] 1.5 % 0.8 % 0.1 % (11/28/14 4:33 AM) (11/27/14 12:29 AM) (11/26/14 1:25 PM) Basophils [0.0-1.0 %] 1.1 % 0.1 % *HI* (11/26/14 1:25 PM) (11/28/14 4:33 AM) Segs-Bands # [1.5-8.1 4.8 K/CMM 9.2 K/CMM 6.7 K/CMM K/CMM] (11/28/14 4:33 AM) *HI* (11/26/14 1:25 PM) (11/27/14 12:29 AM) Lymphocytes # [1.0-5.5 1.9 K/CMM 0.7 K/CMM 0.5 K/CMM K/CMM] (11/28/14 4:33 AM) *LOW* *LOW* (11/27/14 12:29 AM) (11/26/14 1:25 PM) Monocytes # [0.0-0.8 0.6 K/CMM 0.5 K/CMM 0.1 K/CMM K/CMM] (11/28/14 4:33 AM) (11/27/14 12:29 AM) (11/26/14 1:25 PM) Eosinophils # [0.0-0.5 0.1 K/CMM 0.1 K/CMM K/CMM] (11/28/14 4:33 AM) (11/27/14 12:29 AM) Basophils # [0.0-0.2 0.1 K/CMM K/CMM] (11/28/14 4:33 AM) PT [12.0-14.7 seconds] 13.9 seconds 14.1 seconds 14.3 seconds (11/28/14 4:33 AM) (11/27/14 5:13 PM) (11/27/14 12:29 AM) INR [0.85-1.17] 1.07 8 1.08 9 1.10 10 (11/28/14 4:33 AM) (11/27/14 5:13 PM) (11/27/14 12:29 AM) PTT [22.9-35.8 seconds] 54.7 seconds 11 66.5 seconds 12 71.0 seconds 13 *HI* *HI* *HI* (11/28/14 4:33 AM) (11/27/14 11:45 PM) (11/27/14 5:13 PM) 8Interpretive Data: RECOMMENDED RANGES FOR PROTIME INR: 2.0-3.0 for most medical and surgical thromboembolic states. 2.5-3.5 for artificial heart valves and recurrent embolism. INR SHOULD BE USED ONLY FOR PATIENTS ON STABLE ANTICOAGULANT THERAPY.9Interpretive Data: RECOMMENDED RANGES FOR PROTIME INR: 2.0-3.0 for most medical and surgical thromboembolic states. 2.5-3.5 for artificial heart valves and recurrent embolism. INR SHOULD BE USED ONLY FOR PATIENTS ON STABLE ANTICOAGULANT THERAPY.10Interpretive Data: RECOMMENDED RANGES FOR PROTIME INR: 2.0-3.0 for most medical and surgical thromboembolic states. 2.5-3.5 for artificial heart valves and recurrent embolism. INR SHOULD BE USED ONLY FOR PATIENTS ON STABLE ANTICOAGULANT THERAPY.11Interpretive Data: Heparin Therapeutic Range: 57 - 92 [id number] Data: Heparin Therapeutic Range: 57 - 92 [id number] Data: Heparin Therapeutic Range: 57 - 92 Seconds Immunizations No data available for this section [...]
--- OUTSIDE RECORDS SUMMARY | 2019-03-07 07:30 | XMS REPORT | Summary of Care ---
:1955 Author Organization [facility] Encntr_alias(FIN) [id number] Date(s): 03/09/16 - 04/07/16 [facility] Discharge Disposition: Home Attending Physician: Nelson Grady MD Vital Signs No data available for this [...]
--- OUTSIDE RECORDS SUMMARY | 2019-03-07 07:30 | XMS REPORT ---
:1955 [facility] Organization [facility] Address [address] [place] [address] Care Team Providers Name Role Phone DR CJ RAMIREZ Unavailable Unavailable Problems This patient has no known problems. Allergies, Adverse Reactions, Alerts This patient has no known allergies or adverse reactions. Medications This patient has no known medications. Encounters Start End Encounter Admission Attending Care Care Encounter Date/Time Date/Time Type Type Clinicians Facility Department ID 2019-01-21 2019-01-21 Emergency E [facility] [id number] 21:39:00 23:25:00 CJ Results Test Description Test Time Test Comments Text Results Atomic Results Result Comments CT HEAD W/O CONTRAST 2019-01-21 22:37:07 LOCATION: V20 EXAM: CT HEAD WO *WW* CONTRASTHISTORY: Headache.TECHNIQUE: Axial imaging the brain from skull base to the vertex without theadministration of intravenous contrast. CT scan performed usingappropriate/available dose optimization/reduction techniques. DLP 1250.18mGy*cmCOMPARISON: None.FINDINGS:There is no evidence of an acute intracranial hemorrhage or extra-axialcollection. The ventricles are midline in position and normal in size. The basilar cisternsare patent and symmetric.There is no confluent low-density to indicate acute territorial infarct.Encephalomalacic changes are present in the right occipital lobe which may bedue to prior infarct or other injury. The density in the major dural sinuses iswithin normal limits.The orbits and their contents are unremarkable. The calvarium is intact. Noteis made of degenerative changes along the left mandibular condyle. Thetemporomandibular joints are preserved. 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 COMPREHENSIVE METABOLIC YI *WW* 2019-01-21 22:30:00 Test Item Value Reference Range Comments GLUCOSE (test code=06D) 87 mg/dL 75-100 SODIUM (test code=01A) 143 mmol/L 136-145 POTASSIUM (test code=01B) 3.8 mmol/L 3.6-5.1 CHLORIDE (test code=04A) 109 mmol/L 98-107 CO2 (test code=02A) 28 mmol/L 22-32 ANION GAP (test code=ANG) 10.3 mmol/L BUN (test code=05D) 10 mg/dL 7-18 CREATININE (test code=03E) 0.8 mg/dL 0.7-1.3 BUN/CREA (test code=BCR) 12 12-20 CALCIUM (test code=09D) 8.4 mg/dL 8.3-9.5 BILI TOTAL (test code=11A) 0.7 mg/dL 0.2-1.0 PROTEIN (test code=07D) 7.5 g/dL 6.4-8.2 ALBUMIN (test code=08D) 3.2 g/dL 3.5-4.8 GLOBULIN (test code=GLB) 4.4 g/dL 1.5-3.8 ALB/GLOB (test code=AGRR) 0.7 1.0-2.6 ALK PHOS (test code=35A) 112 IU/L 42-121 AST (test code=30A) 20 IU/L <=42 ALT (test code=31A) 12 IU/L <=78 TROPONIN I 2019-01-21 22:26:00 Test Item Value Reference Range Comments TROPONIN I (test code=A84) <0.015 ng/mL 0.000-0.045 CBC (INCLUDES AUTOMATED DIFFERENTIAL)*[id number] 22:11:00 Test Item Value Reference Range Comments WBC (test code=WBC) 9.5 10\S\3/uL 4.5-11.0 RBC (test code=RBC) 4.63 10\S\6/uL 4.20-5.60 HGB (test code=HBG) 13.5 g/dL 14.0-18.0 HCT (test code=HCT) 41.2 % 35.0-46.0 MCV (test code=MCV) 89.0 fL 80.0-94.0 MCH (test code=MCH) 29.2 pg 27.0-31.0 MCHC (test code=MCHC) 32.8 g/dL 32.0-36.0 RDW (test code=RDW) 16.2 % 11.5-14.5 PLT (test code=PLT) 233 10\S\3/uL 130-400 MPV (test code=MPV) 10.5 fL 9.4-12.4 NEUTROP # (test code=NE#) 6.2 10\S\3/uL 2.0-8.0 LYMPH # (test code=LY#) 2.0 10\S\3/uL 1.2-4.0 MONOCYTE # (test code=MO#) 0.8 10\S\3/uL 0.0-1.1 EOSINOPH # (test code=EO#) 0.3 10\S\3/uL 0.0-0.7 BASOPHIL # (test code=BA#) 0.1 10\S\3/uL 0.0-0.3 IG # (test code=IG#) 0.06 10\S\3/uL 0.00-0.06 NRBC # (test code=NRBC#) 0.00 10\S\3/uL 0.00-0.01 NEUTROPH % (test code=NE%) 65.6 % 35.0-73.0 LYMPH % (test code=LY%) 20.8 % 20.0-55.0 MONO % (test code=MO%) 8.9 % 2.5-10.0 EOSINOPH % (test code=EO%) 3.1 % 0.0-5.0 BASOPHIL % (test code=BA%) 1.0 % 0.0-2.0 IG % (test code=IG%) 0.6 % 0.0-0.8 NRBC% (test code=NRBC%) 0.0 % 0.0-0.2 MANDIFF (test code=WMDIFF) NO NO RBC MORPH (test code=WRBCMOR) NORMAL
--- OUTSIDE RECORDS SUMMARY | 2019-03-07 07:30 | XMS REPORT | Summary of Care ---
:1955 Author Organization [facility] Encntr_alias(FIN) [id number] Date(s): 02/05/16 - 03/05/16 [facility] Discharge Disposition: Home Attending Physician: Nelson [...]
--- OUTSIDE RECORDS SUMMARY | 2019-03-07 07:31 | XMS REPORT | Continuity of Care Document ---
:1955 Author Organization [facility] Address [address] [place] [address] Phone Unavailable Care Team Providers Name Role Phone GEORGI SHEN Primary Care Physician Insurance Providers Guarantor Estela Tripathi Address [address] [place] [address] Email NO EMAIL Payer Medicare Policy Number [id number] Subscriber's Name Estela Tripathi Relationship Self / Same As Patient Group Number NA Group Name NA Payer [employer] Policy Number [id number] Subscriber's Name Estela Tripathi Relationship Self / Same As Patient Group Number [id number] Group Name [employer] Advance Directives Directive Response Recorded Date/Time Advance Directives No 06/20/16 8:26pm Advance Directive on File No 09/29/18 10:17am Directive to Physicians/Living Will No 06/20/16 8:26pm Health Care Proxy No 06/20/16 8:26pm Organ Donor No 06/20/16 8:26pm Medical Power of Overseer Kosher Kitchen No 06/20/16 8:26pm Patient/Family Given Education Material R/T Directives? No 09/29/18 10:17am Chief Complaint and Reason for Visit Chief Complaint ALCOHOL WITHDRAWLS, IMPENDING DT'S Reason for Visit Acute alcohol intoxication Comminuted fracture of humerus Dyspnea on exertion Atrial fibrillation, controlled Acute exacerbation of chronic obstructive pulmonary disease (COPD) Acute bronchitis Problems Medical Problem Onset Date Status Acute alcohol intoxication Unknown Acute Acute bronchitis Unknown Acute Acute exacerbation of chronic obstructive pulmonary disease (COPD) Unknown Acute Atrial fibrillation, controlled Unknown Chronic COPD with acute bronchitis Unknown Acute 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 Unknown Acute Comminuted fracture of humerus Unknown Acute Diabetes Unknown Chronic Dyspnea Unknown Acute Dyspnea on exertion Unknown Acute Elevated CPK Unknown Acute Fall Unknown Acute Fracture of ankle Unknown Acute HTN (hypertension) Unknown Chronic [id number] Unknown Acute Multiple fractures of ribs Unknown Acute Multiple fractures of ribs of right side Unknown Acute Near syncope Unknown Acute Pain Unknown Acute Pulmonary congestion Unknown Acute Radial nerve injury Unknown Acute Vertigo Unknown Acute Vertigo Unknown Acute Past Problems Medical Problem Onset Date Status Alcohol use Unknown Acute Alcohol withdrawal syndrome Unknown Acute Rhabdomyolysis Unknown Acute Urinary tract infection Unknown Acute Medications Current Home Medications Medication Dose Units Route Directions Days Qty Instructions Start Date Apixaban * 1 Tab ORAL Once Daily 30 60 (Eliquis *) 5 Days Tablet Mg Tab Duloxetine * 60 Mg ORAL Daily 90 Cap (Cymbalta 60 Mg *) 60 Mg Cap Fluticasone 1 Puff RESPIRATORY Daily 30 1 Each Furoate-Vilante (INHALATION) Days rol (Breo Ellipta 200-25 Mcg/Inh) 1 Inh Inh Furosemide 1 Tab ORAL Daily 30 30 (Lasix 40 Mg*) Days Tablet 40 Mg Tab Methocarbamol 1 Tab ORAL Three Times 30 90 (Methocarbamol A Day Days Tablet 750 Mg) 750 Mg Tab Montelukast 10 Mg ORAL Daily Sodium (Singulair *) 10 Mg Tab Propranolol Hcl 60 Mg ORAL Every 24 (Propranolol Hours Hcl Er 80 Mg (Inderal La) *) 80 Mg Cap Quetiapine 300 Mg ORAL Once Daily 30 Fumarate At Bedtime Tablet (Seroquel) 50 Mg Tab Rosuvastatin * 1 Tab ORAL Daily 30 30 (Crestor 40 Mg Days Tablet *) 40 Mg Tab Tramadol Hcl 1 50 Mg ORAL Every 6 30 /12/08 Tab Tab Hours As Tablet 6 Needed as needed for Pain Scale 4-6 Umeclidinium 1 Puff RESPIRATORY Daily 1 Puff [place] (INHALATION) (Incruse Ellipta) 62.5 Mcg/Inh Inh Varenicline * 1 Mg ORAL Twice A Day (Chantix 0.5 Mg *) 0.5 Mg Tab Past Home Medications Medication Directions Ordered Status Albuterol Hfa * (Proair Hfa 90 Rt-Every 6 Hours As Needed Discontinued Mcg/Act *) Aer, 1-2 Puff Respiratory (Inhalation) Albuterol Sulfate (Proair Hfa) 108 Once Daily Discontinued Mcg/Act Aer, 1 Puff Oral Albuterol/Ipratropium (Duoneb *) Every 6 Hours As Needed as 10/22/16 Discontinued Tiki, 1 Amp Respiratory (Inhalation) needed for Shortness Of Breath Albuterol/Ipratropium (Combivent *) Rt-Every 6 Hours as needed Discontinued 1 Ea Inh, 2 Puff Respiratory for Asthma (Inhalation) Amiodarone Hcl (Cordorone *) 200 Mg Once Daily Discontinued Tab, 200 Mg Oral Amiodarone Hcl (Cordorone *) 200 Mg Once Daily Discontinued Tab, 200 Mg Oral Apixaban * (Eliquis *) 2.5 Mg Tab, 5 Daily Discontinued Mg Oral Apixaban * (Eliquis *) 5 Mg Tab, 1 Twice A Day Discontinued Tab Oral Aspirin (Aspirin *) 81 Mg Chw, 81 Mg Daily Discontinued Oral Atorvastatin * (Lipitor 40 Mg*) 40 Once Daily At Bedtime Discontinued Mg Tab, 40 Mg Oral Atorvastatin Calcium (Lipitor 10 Daily Discontinued Mg*) 10 Mg Tab, 10 Mg Oral Azithromycin (Zithromax Z-Elio *) 1 As Directed for Bronchitis 10/22/16 Discontinued Tab Tab, 1 Dpr Oral Azithromycin (Zithromax *) 500 Mg Daily 04/11/16 Discontinued Tab, 1 Tab Oral Bumetanide 1 Mg Tab, 1 Mg Oral Daily Discontinued Carvedilol (Coreg *) 12.5 Mg Tab, Twice Daily With Meals Discontinued 12.5 Mg Oral Cyclobenzaprine Hcl (Flexeril *) 10 Three Times A Day as needed Discontinued Mg Tab, 10 Mg Oral for Muscle Spasms Fluticasone/Salmeterol (Advair Twice A Day 04/11/16 Discontinued Diskus) 250 /50MCG Inh, 0 Respiratory (Inhalation) Gabapentin (Gabapentin 300 Mg Daily Discontinued (Neurontin) *) 300 Mg Cap, 300 Mg Oral Hydrochlorothiazide Daily Discontinued (Hydrochlorothiazide *) 25 Mg Tab, 25 Mg Oral Lisinopril (Zestril/Prinivil *) 10 Daily Discontinued Mg Tab, Oral Losartan Potassium (Cozaar *) 100 Mg Daily Discontinued Tab, 100 Mg Oral Meclizine Hcl (Meclizine Hcl 25 Mg) Once Daily Discontinued 25 Mg Tab, 25 Mg Oral Meloxicam (Mobic *) 7.5 Mg Tab, 7.5 Daily Discontinued Mg Oral Methocarbamol (Robaxin 750 Mg *) 750 Three Times A Day Discontinued Mg Tab, 1 Tab Oral Methylprednisolone (Medrol Dosepak As Directed for Sob 10/22/16 Discontinued *) 4 Mg Elio, 1 Each Oral Methylprednisolone (Medrol Dosepak As Directed 04/11/16 Discontinued *) 4 Mg Elio, 1 Each Oral Metoprolol Succinate (Toprol Xl *) Once Daily Discontinued 50 Mg Tab, 50 Mg Oral Oxybutynin Chloride (Ditropan Er *) Once Daily Discontinued 10 Mg Tab, 10 Mg Oral Rivaroxaban (Xarelto *) 20 Mg Tab, Once Daily Discontinued 20 Mg Oral Tiotropium Windsor-Olodaterol Every Morning Discontinued (Stiolto Respimat 2.5-2.5 Mcg/Act) 1 Aer Aer, 2 Puff Respiratory(Inhalation) Zolpidem Tartrate (Ambien*) 10 Mg Once Daily At Bedtime Discontinued Tab, 10 Mg Oral Social History Social History Response Recorded Date/Time Onset Date Status Problem Hx Alcohol Use Y - BEER, TRYING 09/29/2018 10:32am Not Applicable Not Applicable TO QUIT Hx Physical Abuse No 09/29/2018 10:32am Not Applicable Not Applicable Smoking Status Start Date Stop Date Current some day smoker Hospital Discharge Instructions No hospital discharge instruction information available. Plan of Care Discharge Date 10/02/18 2:45pm Disposition PATIENT DISCHARGE HOME OR SELF Instructions/Education Provided Rhabdomyolysis Urinary Tract Infection, Adult Alcohol Withdrawal, Qqpr-us-Ltet Forms Provided Portal Welcome Letter Prescriptions See Medication Section Functional Status No functional status information available. Allergies, Adverse Reactions, Alerts Allergen Type Severity Reaction Status Last Updated Hydrocodone ([id number]) Allergy Severe HIVES Active 02/17/15 Immunizations No immunization information available. Vital Signs Acute Vital Signs Vital Response Date/Time Blood Pressure 106/78 mm Hg 10/02/2018 11:14am Pulse Pulse Rate (adult) 89 beats per minute (60 - 100) 10/02/2018 11:14am Respiratory Rate 20 breaths per minute (10 - 24) 10/02/2018 11:14am Temperature Source Oral 10/02/2018 11:14am Height 6 ft 4 in 09/29/2018 3:28am Weight 325.25 lb 10/02/2018 4:26am Body Mass Index 39.5 kg/m^2 10/02/2018 4:26am Results Laboratory Results Test Name Result Units Flags Reference Collection Result Comments Date/Time Date/Time White Blood Count 7.6 K/ul 4.0-12.3 10/02/2018 10/02/2018 8:57am 9:06am Red Blood Count 3.87 M/ul 3.80-5.80 10/02/2018 10/02/2018 8:57am 9:06am Hemoglobin 12.5 g/dl 11.67-17.2 10/02/2018 10/02/2018 2 8:57am 9:06am Hematocrit 37.9 % 35.0-51.0 10/02/2018 10/02/2018 8:57am 9:06am Mean Corpuscular 98.0 fl H 78-96 10/02/2018 10/02/2018 Volume 8:57am 9:06am Mean Corpuscular 32.2 pg 26.8-33.4 10/02/2018 10/02/2018 Hemoglobin 8:57am 9:06am Mean Corpuscular 32.9 g/dl 32.3-36.7 10/02/2018 10/02/2018 Hemoglobin 8:57am 9:06am Concent Red Cell 13.2 % 11.6-15.4 10/02/2018 10/02/2018 Distribution 8:57am 9:06am Width Platelet Count 243 K/ul 115-328 10/02/2018 10/02/2018 8:57am 9:06am Mean Platelet 6.8 fl L 8.4-11.8 10/02/2018 10/02/2018 Volume 8:57am 9:06am Neutrophils (%) 59.9 % 44.7-82.4 10/02/2018 10/02/2018 (Auto) 8:57am 9:06am Lymphocytes (%) 20.7 % 10.0-50.0 10/02/2018 10/02/2018 (Auto) 8:57am 9:06am Monocytes (%) 7.8 % 3.9-13.4 10/02/2018 10/02/2018 (Auto) 8:57am 9:06am Eosinophils (%) 9.3 % H 0.0-6.43 10/02/2018 10/02/2018 (Auto) 8:57am 9:06am Basophils (%) 2.4 % H 0.0-0.72 10/02/2018 10/02/2018 (Auto) 8:57am 9:06am Urine Color YELLOW 09/29/2018 09/29/2018 4:10am 4:19am Urine Appearance SL CLOUDY A CLEAR 09/29/2018 09/29/2018 4:10am 4:19am Urine Glucose NEGATIVE NEGATIVE 09/29/2018 09/29/2018 4:10am 4:19am Urine Bilirubin NEGATIVE NEGATIVE 09/29/2018 09/29/2018 4:10am 4:19am Urine Ketones NEGATIVE NEGATIVE 09/29/2018 09/29/2018 4:10am 4:19am Urine Specific 1.023 1.003-1.03 09/29/2018 09/29/2018 [place] 0 4:10am 4:19am Urine Blood NEGATIVE NEGATIVE 09/29/2018 09/29/2018 4:10am 4:19am Urine pH 5.500 5-9 09/29/2018 09/29/2018 4:10am 4:19am Urine Protein 1+ (50 H NEGATIVE 09/29/2018 09/29/2018 mg/dL) 4:10am 4:19am Urine 4.0-6.0 mg/dL H 0.2-1.0 09/29/2018 09/29/2018 Urobilinogen 4:10am 4:19am Urine Nitrate NEGATIVE NEGATIVE 09/29/2018 09/29/2018 4:10am 4:19am Urine Leukocyte NEGATIVE NEGATIVE 09/29/2018 09/29/2018 Esterase 4:10am 4:19am Urine RBC 1-5 /hpf 0-5 09/29/2018 09/29/2018 4:10am 4:30am Urine WBC 15-19 /hpf H 0-5 09/29/2018 09/29/2018 4:10am 4:30am Urine Epithelial 11-14 /hpf 0-5 09/29/2018 09/29/2018 Cells 4:10am 4:30am Urine Bacteria None /hpf None 09/29/2018 09/29/2018 Detected Detect 4:10am 4:30am Urine Casts >50 /lpf H None 09/29/2018 09/29/2018 Detect 4:10am 4:30am Urine Culture NO 09/29/2018 09/29/2018 Reflexed 4:10am 4:19am Urine Pathogenic Coarse /hpf A None 09/29/2018 09/29/2018 Casts granular Detect 4:10am 4:30am 1-5 Random Glucose 198 mg/dL H 82-115 10/02/2018 10/02/2018 8:57am 9:37am Blood Urea 23 mg/dL 8-10/02/2018 10/02/2018 Nitrogen 8:57am 9:37am Serum Osmolality 287 280-300 10/02/2018 10/02/2018 8:57am 9:37am Creatinine 1.5 mg/dL H 0.70-1.20 10/02/2018 10/02/2018 8:57am 9:37am Glomerular 47.58 L 10/02/2018 10/02/2018 GFR RESULTS ARE REPORTED IN mL/min/1.73m2. Filtration Rate 8:57am 9:37am Calc Normal GFR: >60mL/min Moderately decreased GFR: 30-59 mL/min Severely decreased GFR: 15-29 mL/min Kidney Failure (or Dialysis): <15 mL/min The calculated eGFR is not valid for patients younger than 18 years or older than 75 years. BUN/Creatinine 15.3 09-2810/02/2018 10/02/2018 Ratio 8:57am 9:37am Sodium Level 139 mmol/L 135-145 10/02/2018 10/02/2018 8:57am 9:37am Potassium Level 4.1 mmol/L 3.5-5.2 10/02/2018 10/02/2018 8:57am 9:37am Chloride Level 100 mmol/L 98-108 10/02/2018 10/02/2018 8:57am 9:37am Carbon Dioxide 28 mmol/L 21-10/02/2018 10/02/2018 Level 8:57am 9:37am Anion Gap 15.1 mEq/L 09-2810/02/2018 10/02/2018 8:57am 9:37am Calcium Level 9.4 mg/dL 8.8-10.2 10/02/2018 10/02/2018 8:57am 9:37am Magnesium Level 1.8 mg/dL 1.6-2.4 09/30/2018 09/30/2018 8:34am 9:01am Total Protein 6.9 g/dL 6.6-8.7 09/30/2018 09/30/2018 8:34am 9:01am Albumin 3.4 g/dL L 3.5-5.2 09/30/2018 09/30/2018 8:34am 9:01am Globulin 3.5 gm/dL 09/30/2018 09/30/2018 8:34am 9:01am Albumin/Globulin 1.0 >1.0 09/30/2018 09/30/2018 Ratio 8:34am 9:01am Total Bilirubin 1.1 mg/dL 0.0-1.2 09/30/2018 09/30/2018 8:34am 9:01am Aspartate Amino 21 U/L 15-40 09/30/2018 09/30/2018 Transf (AST/SGOT) 8:34am 9:01am Alanine 18 U/L 0-41 09/30/2018 09/30/2018 Aminotransferase 8:34am 9:01am (ALT/SGPT) Total Alkaline 129 U/L 40-130 09/30/2018 09/30/2018 Phosphatase 8:34am 9:01am Urine NEGATIVE NG/ML NEGATIVE 09/30/2018 09/30/2018 Amphetamines 4:10am 9:21am Screen Urine NEGATIVE NG/ML NEGATIVE 09/30/2018 09/30/2018 Barbiturates, 4:10am 9:21am Quantitative Urine NEGATIVE NG/ML NEGATIVE 09/30/2018 09/30/2018 Benzodiazepines 4:10am 9:21am Screen Urine NEGATIVE NG/ML NEGATIVE 09/30/2018 09/30/2018 Cannabinoids 4:10am 9:21am Urine Cocaine NEGATIVE NG/ML NEGATIVE 09/30/2018 09/30/2018 Metabolite 4:10am 9:21am Urine Opiates NEGATIVE NG/ML NEGATIVE 09/30/2018 09/30/2018 Screen 4:10am 9:21am Urine NEGATIVE NG/ML NEGATIVE 09/30/2018 09/30/2018 Phencyclidine 4:10am 9:21am (PCP) Level Methadone Level POSITIVE NG/ML H NEGATIVE 09/30/2018 09/30/2018 4:10am 9:27am Propoxyphene NEGATIVE NG/ML NEGATIVE 09/30/2018 09/30/2018 Level 4:10am 9:21am Oxycodone Level NEGATIVE NG/ML NEGATIVE 09/30/2018 09/30/2018 4:10am 9:21am Urine Drug Screen . 09/30/2018 09/30/2018 DRUGS OF ABUSE CUT-OFF VALUES Note 4:10am 8:58am AMPHETAMINES (AMPH) NEGATIVE (CUT OFF CONC: 1000 NG/ML) BARBITUATES (RUBEN) NEGATIVE (CUT OFF CONC: 200 NG/ML) BENZODIAZEPINES (ZANE) NEGATIVE (CUT OFF CONC: 300 NG/ML) CANNABINOIDS (THC) NEGATIVE (CUT OFF CONC: 50 NG/ML) COCAINE (SOFIA) NEGATIVE (CUT OFF CONC: 300 NG/ML) OPIATES (OPI) NEGATIVE (CUT OFF CONC: 300 NG/ML) PHENCYCLIDINE (PCP) NEGATIVE (CUT OFF CONC: 25 NG/ML)METHADONE (MTD) NEGATIVE (CUT OFF CONC: 300 NG/ML) PROPOXYPHENE (PPX) NEGATIVE (CUT OFF CONC: 300 NG/ML) OXYCODONE (OXY) NEGATIVE (CUT OFF CONC: 100 NG/ML) ANY POSITIVE RESULT IS UNCONFIRMED. CONFIRMATION AND QUANTITATION AVAILABLE UPON MD REQUEST. Ethyl Alcohol < 10.1 mg/dL 0.0-10.1 09/29/2018 09/29/2018 Level 5:08am 5:35am Creatine Kinase 53 U/L 20-200 10/02/2018 10/02/2018 8:57am 9:37am Procedures Procedure Status Date Provider(s) EMERGENCY DEPT VISIT Completed 09/06/18 COMPLETE CBC W/AUTO DIFF WBC Completed 09/06/18 ROUTINE VENIPUNCTURE Completed 09/06/18 COMPREHEN METABOLIC PANEL Completed 09/06/18 X-RAY EXAM OF HUMERUS Completed 09/06/18 X-RAY EXAM OF SHOULDER Completed 09/06/18 Completed 09/06/18 DRUG TEST DEF 1-7 CLASSES Completed 09/06/18 X-RAY EXAM OF SHOULDER Completed 09/14/18 X-ray of left humerus, two views Completed 09/06/18 HERBER BENZ MD X-ray of left shoulder, two views Completed 09/06/18 HERBER BENZ MD X-ray of chest, single view Completed 09/29/18 DANNY CHINO MD Computed tomography of head without Completed 09/29/18 ALICE RODRIGUEZP- Sergio contrast Encounters Encounter Location Arrival/Admit Date Discharge/Depart Date Attending Provider Discharged [place] 09/29/18 7:34am 10/02/18 2:45pm PATRICK WELCH, Inpatient (obs) [facility]ly [facility] JAKI Stanley MD [facility] Registered [place] 09/14[facility] 2:[facility]pm [facility] Departed [place] 09/06/18 7:32pm 09/06/18 8:55pm [facility] Recent Diagnosis Acute alcohol intoxication Comminuted fracture of humerus Dyspnea on exertion Atrial fibrillation, controlled Acute exacerbation of chronic obstructive pulmonary disease (COPD) Acute bronchitis
--- OUTSIDE RECORDS SUMMARY | 2019-03-07 07:31 | XMS REPORT | Continuity of Care Document ---
:1955 Author Organization [facility] Address [address] [place] [address] Phone Unavailable Care Team Providers Name Role Phone GEORGI SHEN Primary Care Physician Insurance Providers Guarantor Estela Tripathi Address [address] [place] [phone] Email NO EMAIL Payer [employer] Policy Number [id number] Subscriber's Name Estela Tripathi Relationship Self / Same As Patient Group Number [id number] Group Name ROSA ISELA Hernadez [employer] Payer Medicare Policy Number [id number] Subscriber's Name Estela Tripathi Relationship Self / Same As Patient Group Number NA Group Name NA Advance Directives Directive Response Recorded Date/Time Advance Directives No 06/20/16 8:26pm Advance Directive on File No 09/06/18 7:29pm Directive to Physicians/Living Will No 06/20/16 8:26pm Health Care Proxy No 06/20/16 8:26pm Organ Donor No 06/20/16 8:26pm Medical Power of Flight Radio Officer No 06/20/16 8:26pm Patient/Family Given Education Material R/T Y - 09/06/18...MK 09/06/18 8: 31pm Directives? 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 Unknown Acute Comminuted fracture of humerus Unknown Acute Diabetes Unknown Chronic Dyspnea Unknown Acute Dyspnea on exertion Unknown Acute Elevated CPK Unknown Acute Fall Unknown Acute Fracture of ankle Unknown Acute HTN (hypertension) Unknown Chronic [id number] Unknown Acute Multiple fractures of ribs Unknown Acute Multiple fractures of ribs of right side Unknown Acute Near syncope Unknown Acute Pain Unknown Acute Pulmonary congestion Unknown Acute Radial nerve injury Unknown Acute Vertigo Unknown Acute Vertigo Unknown Acute Medications Current Home Medications Medication Dose Units Route Directions Days Qty Instructions Start Date Albuterol Sulfate 1 Puff ORAL Once Daily 9 (Proair Hfa) 108 Mcg/Act Aer Albuterol/Ipratropiu 1 Amp RESPIRATORY Every 6 60 10/22/ m (Duoneb *) Tiki (INHALATION) Hours As Ampule 17 Needed as needed for Shortness Of Breath Amiodarone Hcl 200 Mg ORAL Once Daily 90 (Cordorone *) 200 Mg Tab Apixaban * (Eliquis 5 Mg ORAL Daily *) 2.5 Mg Tab Atorvastatin * 40 Mg ORAL Once Daily (Lipitor 40 Mg*) 40 At Bedtime Mg Tab Azithromycin 1 Dpr ORAL As Directed 1 Dose (Zithromax Z-Elio *) for Pack 17 1 Tab Tab Bronchitis Bumetanide 1 Mg Tab 1 Mg ORAL Daily 90 Tablet Duloxetine * 60 Mg ORAL Daily 90 Cap (Cymbalta 60 Mg *) 60 Mg Cap Fluticasone/Salmeter 0 RESPIRATORY Twice A Day 1 Inh 07/03/ ol (Advair Diskus) (INHALATION) 16 250 /50MCG Inh Gabapentin 300 Mg ORAL Daily 90 Cap (Gabapentin 300 Mg (Neurontin) *) 300 Mg Cap Hydrochlorothiazide 25 Mg ORAL Daily (Hydrochlorothiazide *) 25 Mg Tab Losartan Potassium 100 Mg ORAL Daily 30 (Cozaar *) 100 Mg Tablet Tab Meclizine Hcl 25 Mg ORAL Once Daily 30 (Meclizine Hcl 25 Mg) 25 Mg Tab Meloxicam (Mobic *) 7.5 Mg ORAL Daily 7.5 Mg Tab Methylprednisolone 1 Each ORAL As Directed 1 Pack (Medrol Dosepak *) 4 for Sob 17 Mg Elio Metoprolol Succinate 50 Mg ORAL Once Daily (Toprol Xl *) 50 Mg Tab Montelukast Sodium 10 Mg ORAL Daily (Singulair *) 10 Mg Tab Oxybutynin Chloride 10 Mg ORAL Once Daily (Ditropan Er *) 10 Mg Tab Quetiapine Fumarate 100 Mg ORAL Once Daily 30 (Seroquel) 50 Mg Tab At Bedtime Tablet Tiotropium 2 Puff RESPIRATORY Every [place]-Olodaterol (INHALATION) Morning (Stiolto Respimat 2.5-2.5 Mcg/Act) 1 Aer Aer Tramadol Hcl 1 Tab 50 Mg ORAL Every 6 30 07/03/ Tab Hours As Tablet 16 Needed as needed for Pain Scale 4-6 Zolpidem Tartrate 10 Mg ORAL Once Daily (Ambien*) 10 Mg Tab At Bedtime Past Home Medications Medication Directions Ordered Status Albuterol Hfa * (Proair Hfa 90 Rt-Every 6 Hours As Needed Discontinued Mcg/Act *) Aer, 1-2 Puff Respiratory (Inhalation) Albuterol/Ipratropium (Combivent *) Rt-Every 6 Hours as needed Discontinued 1 Ea Inh, 2 Puff Respiratory for Asthma (Inhalation) Amiodarone Hcl (Cordorone *) 200 Mg Once Daily Discontinued Tab, 200 Mg Oral Aspirin (Aspirin *) 81 Mg Chw, 81 Mg Daily Discontinued Oral Atorvastatin Calcium (Lipitor 10 Daily Discontinued Mg*) 10 Mg Tab, 10 Mg Oral Azithromycin (Zithromax *) 500 Mg Daily 04/11/16 Discontinued Tab, 1 Tab Oral Carvedilol (Coreg *) 12.5 Mg Tab, Twice Daily With Meals Discontinued 12.5 Mg Oral Cyclobenzaprine Hcl (Flexeril *) 10 Three Times A Day as needed Discontinued Mg Tab, 10 Mg Oral for Muscle Spasms Lisinopril (Zestril/Prinivil *) 10 Daily Discontinued Mg Tab, Oral Methylprednisolone (Medrol Dosepak As Directed 04/11/16 Discontinued *) 4 Mg Elio, 1 Each Oral Rivaroxaban (Xarelto *) 20 Mg Tab, Once Daily Discontinued 20 Mg Oral Social History Social History Response Recorded Date/Time Onset Date Status Problem Hx Alcohol Use Y - BEER, TRYING 10/20/2016 11:15pm Not Applicable Not Applicable TO QUIT Hx Physical Abuse No 09/06/2018 7:29pm Not Applicable Not Applicable Smoking Status Start Date Stop Date Current every day smoker Hospital Discharge Instructions No hospital discharge instruction information available. Plan of Care Discharge Date 09/06/18 8:55pm Instructions/Education Provided Alcohol Use Disorder Humerus Fracture Treated With Immobilization, [id number] Forms Provided Portal Welcome Letter Prescriptions See Medication Section Referrals AC GEORGI Clark Address: [address] [place] [address] Additional Instructions/Education CALL DR SRIVASTAVA OR OTHER ORTHOPEDIST IN AM FOR FOLLOW UP AND FURTHER TREATMENT NAPROSYN TWICE A DAY WITH FOOD TO DECREASE SWELLING TYLENOL 3 FOR PAIN Functional Status No functional status information available. Allergies, Adverse Reactions, Alerts Allergen Type Severity Reaction Status Last Updated Hydrocodone ([id number]) Allergy Severe HIVES Active 02/17/15 Immunizations No immunization information available. Vital Signs Acute Vital Signs Vital Response Date/Time Blood Pressure 123/81 mm Hg 09/06/2018 8:58pm Pulse Pulse Rate (adult) 64 beats per minute (60 - 100) 09/06/2018 8:58pm Respiratory Rate 22 breaths per minute (10 - 24) 09/06/2018 8:58pm Temperature Source Oral 09/06/2018 8:58pm Height 6 ft 4 in 09/06/2018 7:29pm Weight 334 lb 09/06/2018 7:29pm Body Mass Index 40.7 kg/m^2 09/06/2018 7:29pm Results Laboratory Results Test Name Result Units Flags Reference Collection Result Comments Date/Time Date/Time Specimen Type QUEST 07/27/2018 07/27/2018 TESTS SENT TO LAB PREFERENCE OF CUSTOMER OR CUSTOMERS (Misc Panel) 10:43am 10:45am INSURANCE White Blood Count 8.5 K/ul 4.0-12.3 09/06/2018 09/06/2018 8:00pm 8:09pm Red Blood Count 4.80 M/ul 3.80-5.80 09/06/2018 09/06/2018 8:00pm 8:09pm Hemoglobin 15.3 g/dl 11.67-17.22 09/06/2018 09/06/2018 8:00pm 8:09pm Hematocrit 46.2 % 35.0-51.0 09/06/2018 09/06/2018 8:00pm 8:09pm Mean Corpuscular 96.2 fl H 78-96 09/06/2018 09/06/2018 Volume 8:00pm 8:09pm Mean Corpuscular 31.8 pg 26.8-33.4 09/06/2018 09/06/2018 Hemoglobin 8:00pm 8:09pm Mean Corpuscular 33.1 g/dl 32.3-36.7 09/06/2018 09/06/2018 Hemoglobin Concent 8:00pm 8:09pm Red Cell 13.1 % 11.6-15.4 09/06/2018 09/06/2018 Distribution Width 8:00pm 8:09pm Platelet Count 242 K/ul 115-328 09/06/2018 09/06/2018 8:00pm 8:09pm Mean Platelet 7.4 fl L 8.4-11.8 09/06/2018 09/06/2018 Volume 8:00pm 8:09pm Neutrophils (%) 69.4 % 44.7-82.4 09/06/2018 09/06/2018 (Auto) 8:00pm 8:09pm Lymphocytes (%) 18.3 % 10.0-50.0 09/06/2018 09/06/2018 (Auto) 8:00pm 8:09pm Monocytes (%) 8.8 % 3.9-13.4 09/06/2018 09/06/2018 (Auto) 8:00pm 8:09pm Eosinophils (%) 2.3 % 0.0-6.43 09/06/2018 09/06/2018 (Auto) 8:00pm 8:09pm Basophils (%) 1.2 % H 0.0-0.72 09/06/2018 09/06/2018 (Auto) 8:00pm 8:09pm Random Glucose 80 mg/dL L 82-115 09/06/2018 09/06/2018 8:00pm 8:21pm Blood Urea 17 mg/dL 8-23 09/06/2018 09/06/2018 Nitrogen 8:00pm 8:21pm Serum Osmolality 274 L 280-300 09/06/2018 09/06/2018 8:00pm 8:21pm Creatinine 1.2 mg/dL 0.70-1.20 09/06/2018 09/06/2018 8:00pm 8:21pm Glomerular > 60.00 09/06/2018 09/06/2018 GFR RESULTS ARE REPORTED IN mL/min/1.73m2. Filtration Rate 8:00pm 8:21pm Calc Normal GFR: >60mL/min Moderately decreased GFR: 30-59 mL/min Severely decreased GFR: 15-29 mL/min Kidney Failure (or Dialysis): <15 mL/min The calculated eGFR is not valid for patients younger than 18 years or older than 75 years. BUN/Creatinine 14.2 12-09/06/2018 09/06/2018 Ratio 8:00pm 8:21pm Sodium Level 137 mmol/L 135-145 09/06/2018 09/06/2018 8:00pm 8:21pm Potassium Level 3.2 mmol/L L 3.5-5.2 09/06/2018 09/06/2018 8:00pm 8:21pm Chloride Level 93 mmol/L L 98-108 09/06/2018 09/06/2018 8:00pm 8:21pm Carbon Dioxide 31 mmol/L 21-32 09/06/2018 09/06/2018 Level 8:00pm 8:21pm Anion Gap 16.2 mEq/L 12-09/06/2018 09/06/2018 8:00pm 8:21pm Calcium Level 9.3 mg/dL 8.8-10.2 09/06/2018 09/06/2018 8:00pm 8:21pm Total Protein 8.1 g/dL 6.6-8.7 09/06/2018 09/06/2018 8:00pm 8:21pm Albumin 4.3 g/dL 3.5-5.2 09/06/2018 09/06/2018 8:00pm 8:21pm Globulin 3.8 gm/dL 09/06/2018 09/06/2018 8:00pm 8:21pm Albumin/Globulin 1.1 >1.0 09/06/2018 09/06/2018 Ratio 8:00pm 8:21pm Total Bilirubin 1.0 mg/dL 0.0-1.2 09/06/2018 09/06/2018 8:00pm 8:21pm Aspartate Amino 30 U/L 15-40 09/06/2018 09/06/2018 Transf (AST/SGOT) 8:00pm 8:21pm Alanine 32 U/L 0-41 09/06/2018 09/06/2018 Aminotransferase 8:00pm 8:21pm (ALT/SGPT) Total Alkaline 120 U/L 40-130 09/06/2018 09/06/2018 Phosphatase 8:00pm 8:21pm Ethyl Alcohol 70.7 mg/dL H 0.0-10.1 09/06/2018 09/06/2018 Level 8:00pm 8:21pm Procedures Procedure Status Date Provider(s) X-ray of left humerus, two views Completed 09/06/18 HERBER BENZ MD X-ray of left shoulder, two views Completed 09/06/18 HERBER BENZ MD Encounters Encounter Location Arrival/Admit Date Discharge/Depart Date Attending Provider Registered Kary 09/06/18 7:32pm HERBER BENZ Emergency Room [facility] Registered Kary 07/27/18 10:36am NAHUM CHEEMA [facility] Recent Diagnosis
--- OUTSIDE RECORDS SUMMARY | 2019-03-07 07:32 | XMS REPORT | Continuity of Care Document ---
:1955 Author Organization [facility] Address [address] [place] [address] Phone Unavailable Care Team Providers Name Role Phone GEORGI SHEN Eduardo Primary Care Physician Insurance Providers Guarantor Estela Tripathi Address [address] [place] [address] Email NO EMAIL Payer Medicare Policy Number [id number] Subscriber's Name Estela Tripathi Relationship Self / Same As Patient Group Number NA Group Name NA Payer AET[employer] Policy Number [id number] Subscriber's Name Estela Tripathi Relationship Self / Same As Patient Group Number [id number] Group Name [employer] Advance Directives Directive Response Recorded Date/Time Advance Directives No 06/20/16 8:26pm Advance Directive on File No 10/20/18 1:00pm Directive to Physicians/Living Will No 06/20/16 8:26pm Health Care Proxy No 06/20/16 8:26pm Organ Donor No 06/20/16 8:26pm Medical Power of Clay Hoister No 06/20/16 8:26pm Patient/Family Given Education Material R/T Y - 10/20/18..AW 10/20/18 1:00pm Directives? 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 Unknown Acute Comminuted fracture of humerus Unknown Acute Diabetes Unknown Chronic Dyspnea Unknown Acute Dyspnea on exertion Unknown Acute Elevated CPK Unknown Acute Fall Unknown Acute Fracture of ankle Unknown Acute HTN (hypertension) Unknown Chronic [id number] Unknown Acute Multiple fractures of ribs Unknown Acute Multiple fractures of ribs of right side Unknown Acute Near syncope Unknown Acute Pain Unknown Acute Pulmonary congestion Unknown Acute Radial nerve injury Unknown Acute Vertigo Unknown Acute Vertigo Unknown Acute Past Problems Medical Problem Onset Date Status Alcohol use Unknown Acute Alcohol withdrawal syndrome Unknown Acute History of COPD Unknown Acute Hx of congestive heart failure Unknown Acute Rhabdomyolysis Unknown Acute Urinary tract [...] 1 50 Mg ORAL Every 6 30 Tab Tab Hours As Tablet 6 Needed as needed for Pain Scale 4-6 Umeclidinium 1 Puff RESPIRATORY Daily 1 Puff [place] (INHALATION) (Incruse Ellipta) 62.5 Mcg/Inh Inh Varenicline [...] Once Daily Discontinued 20 Mg Oral Tiotropium [place]-Olodaterol Every Morning Discontinued (Stiolto Respimat 2.5-2.5 Mcg/Act) 1 Aer Aer, 2 Puff Respiratory(Inhalation) Zolpidem Tartrate (Ambien*) 10 Mg Once Daily At Bedtime Discontinued Tab, 10 Mg Oral Social History Social History Response Recorded Date/Time Onset Date Status Problem Hx Alcohol Use Y - BEER, TRYING 09/29/2018 10:32am Not Applicable Not Applicable TO QUIT Hx Physical Abuse No 10/20/2018 1:00pm Not Applicable Not Applicable Smoking Status Start Date Stop Date Current some day smoker Hospital Discharge Instructions No hospital discharge instruction information available. Plan of Care Discharge Date 10/20/18 3:08pm Instructions/Education Provided CHF Chronic Obstructive Pulmonary Disease, [id number]-[id number] Forms Provided Portal Welcome Letter Prescriptions See Medication Section Referrals GEORGI SHEN Address: [address] [place], [place] [address] Additional Instructions/Education CONTINUE ALL MEDICATIONS INCLUDING YOUR LASIX (DIURETICS) PRESCRIBED FOLLOW UP WITH YOUR PRIMARY CARE PROVIDER IN 2-3 DAYS RETURN TO THE ER IF YOUR SYMPTOMS WORSEN. Functional Status No functional status information available. Allergies, Adverse Reactions, Alerts Allergen Type Severity Reaction Status Last Updated Hydrocodone ([id number]) Allergy Severe HIVES Active 02/17/15 Immunizations No immunization information available. Vital Signs Acute Vital Signs Vital Response Date/Time Blood Pressure 115/83 mm Hg 10/20/2018 3:12pm Pulse Pulse Rate (adult) 60 beats per minute (60 - 100) 10/20/2018 3:12pm Respiratory Rate 18 breaths per minute (10 - 24) 10/20/2018 3:12pm Temperature Source Oral 10/20/2018 3:12pm Height 6 ft 4 in 10/20/2018 1:00pm Weight 324 lb 10/20/2018 1:00pm Body Mass Index 39.4 kg/m^2 10/20/2018 1:00pm Results Laboratory Results Test Name Result Units Flags Reference Collection Result Comments Date/Time Date/Time White Blood 7.6 K/ul 4.0-12.3 10/02/2018 10/02/2018 Count 8:57am 9:06am Red Blood Count 3.87 M/ul 3.80-5.80 10/02/2018 10/02/2018 8:57am 9:06am Hemoglobin 12.5 g/dl 11.67-17.2 10/02/2018 10/02/2018 2 8:57am 9:06am Hematocrit 37.9 % 35.0-51.0 10/02/2018 10/02/2018 8:57am 9:06am Mean 98.0 fl H 78-96 10/02/2018 10/02/2018 Corpuscular 8:57am 9:06am Volume Mean 32.2 pg 26.8-33.4 10/02/2018 10/02/2018 Corpuscular 8:57am 9:06am Hemoglobin Mean 32.9 g/dl 32.3-36.7 10/02/2018 10/02/2018 Corpuscular 8:57am 9:06am Hemoglobin Concent Red Cell 13.2 % 11.6-15.4 10/02/2018 [...] Color YELLOW 09/29/2018 09/29/2018 4:10am 4:19am Urine SL CLOUDY A CLEAR 09/29/2018 09/29/2018 Appearance 4:10am 4:19am Urine Glucose NEGATIVE NEGATIVE 09/29/2018 09/29/2018 4:10am 4:19am Urine Bilirubin NEGATIVE NEGATIVE 09/29/2018 09/29/2018 4:10am 4:19am Urine Ketones NEGATIVE NEGATIVE 09/29/2018 09/29/2018 4:10am 4:19am Urine Specific 1.023 1.003-1.03 09/29/2018 09/29/2018 [place] 0 4:10am 4:19am Urine Blood NEGATIVE NEGATIVE [...] H 0-5 09/29/2018 09/29/2018 4:10am 4:30am Urine 11-14 /hpf 0-5 09/29/2018 09/29/2018 Epithelial 4:10am 4:30am Cells Urine Bacteria None /hpf None 09/29/2018 09/29/2018 Detected Detect 4:10am 4:30am Urine Casts >50 /lpf H None 09/29/2018 09/29/2018 Detect 4:10am 4:30am Urine Culture NO 09/29/2018 09/29/2018 Reflexed 4:10am 4:19am Urine Coarse /hpf A None 09/29/2018 09/29/2018 Pathogenic granular Detect 4:10am 4:30am Casts 1-5 Random Glucose 198 mg/dL H 82-115 10/02/2018 10/02/2018 8:57am 9:37am Blood Urea 23 mg/dL 8-10/02/2018 10/02/2018 Nitrogen 8:57am 9:37am Serum 287 280-300 10/02/2018 10/02/2018 Osmolality 8:57am 9:37am Creatinine 1.5 mg/dL H 0.70-1.20 [...] 10/02/2018 8:57am 9:37am Carbon Dioxide 28 mmol/L 21-32 10/02/2018 10/02/2018 Level 8:57am 9:37am Anion Gap 15.1 mEq/L 09-2810/02/2018 10/02/2018 8:57am 9:37am Calcium Level 9.4 mg/dL 8.8-10.2 10/02/2018 10/02/2018 8:57am 9:37am Magnesium Level 1.8 mg/dL 1.6-2.4 09/30/2018 09/30/2018 8:34am 9:01am Total Protein 6.9 g/dL 6.6-8.7 09/30/2018 09/30/2018 8:34am 9:01am Albumin 3.4 g/dL L 3.5-5.2 09/30/2018 09/30/2018 8:34am 9:01am Globulin 3.5 gm/dL 09/30/2018 09/30/2018 8:34am 9:01am Albumin/Globuli 1.0 >1.0 09/30/2018 09/30/2018 n Ratio 8:34am 9:01am Total Bilirubin 1.1 mg/dL 0.0-1.2 09/30/2018 09/30/2018 8:34am 9:01am Aspartate Amino 21 U/L 15-40 09/30/2018 09/30/2018 Transf 8:34am 9:01am (AST/SGOT) Alanine 18 U/L 0-41 09/30/2018 09/30/2018 Aminotransferas 8:34am 9:01am e (ALT/SGPT) Total Alkaline 129 U/L 40-130 09/30/2018 [...] NEGATIVE 09/30/2018 09/30/2018 4:10am 9:21am Urine Drug . 09/30/2018 09/30/2018 DRUGS OF ABUSE CUT-OFF VALUES Screen Note 4:10am 8:58am AMPHETAMINES (AMPH) NEGATIVE (CUT [...] mg/dL 0.0-10.1 09/29/2018 09/29/2018 Level 5:08am 5:35am Prothrombin 11.4 SECONDS 10.3-12.3 10/20/2018 10/20/2018 Time 2:07pm 2:31pm THERAPEUTIC LEVEL: 1.5 to 1.9 times normal range of PT Prothromb Time 1.04 10/20/2018 10/20/2018 International 2:07pm 2:31pm Recommended therapeutic range for patients receiving Ratio warfarin (coumadin) therapy: INR is 2.0 to 3.0 Recommended range for patients with mechanical prosthetic heart valves: INR is 2.5 to 3.5 Activated 30.8 SECONDS 22.5-37.0 10/20/2018 10/20/2018 Partial 2:07pm 2:31pm Thromboplast Time YY-Xdl-R-Type 2149 pg/mL H 0-125 10/20/2018 10/20/2018 Natriuretic 2:07pm 2:30pm Peptide Creatine Kinase 28 U/L 20-200 10/20/2018 10/20/2018 2:07pm 2:28pm Troponin I < 0.30 ng/mL 0.0-0.5 10/20/2018 10/20/2018 Published clinical studies have shown elevations of cTnI in 2:07pm 2:31pm patients with myocardial injury, as seen in unstable angina pectoris, cardiac contusions, and heart transplants. Elevations have also been seen in patients with rhabdomyolysis and polymyositis. Elevated troponin levels point to myocardial injury, but are not necessarily indicative of an ischemic mechanism. The term ND should be used when there is evidence of cardiac damage, as detected by marker proteins in a clinical setting consistent with myocardial ischemia. If the clinical circumstance suggests that an ischemic mechanism is unlikely, other causes of cardiac injury should be considered. For diagnostic purposes, the results should always be assessed in conjunction with the patient's medical history, clinical examination and other findings. Creatine Kinase 1.5 ng/ml 0.0-3.6 10/20/2018 10/20/2018 MB 2:07pm 2:31pm DIAGNOSTIC CITERIA: CKMB CKMB RELATIVE INDEX SUGGESTIVE OF NON-AMI < or=5 N/A SHABAZZ ZONE (INCONCLUSIVE) > 5 < or=4 SUGGESTIVE OF AMI >5 > 4 Procedures Procedure Status Date Provider(s) [facility] 5 YR+ W/O IMAGING Completed 09/29/18 HYDRATE IV INFUSION ADD-ON Completed 09/29/18 EMERGENCY DEPT VISIT Completed 09/29/18 THER/PROPH/DIAG IV INF INIT Completed 09/29/18 CT HEAD/BRAIN W/O DYE Completed 09/29/18 HYDRATE IV INFUSION ADD-ON Completed 09/29/18 X-RAY EXAM CHEST 1 VIEW Completed 09/29/18 TX/PRO/DX INJ NEW DRUG ADDON Completed 09/29/18 TX/PRO/DX INJ NEW DRUG ADDON Completed 09/29/18 COMPLETE CBC W/AUTO DIFF WBC Completed 09/29/18 ASSAY OF CK (CPK) Completed 09/29/18 ASSAY OF MAGNESIUM Completed 09/29/18 URINALYSIS AUTO W/SCOPE Completed 09/29/18 ROUTINE VENIPUNCTURE Completed 09/29/18 COMPREHEN METABOLIC PANEL Completed 09/29/18 URINE BACTERIA CULTURE Completed 09/29/18 US GUIDE VASCULAR ACCESS Completed 09/29/18 ELECTROCARDIOGRAM TRACING Completed 09/29/18 TX/PRO/DX INJ SAME DRUG DIRECTORY ASSISTANCE OPERATOR Completed 09/29/18 HYDRATE IV INFUSION ADD-ON Completed 09/29/18 COMPLETE CBC W/AUTO DIFF WBC Completed 09/29/18 ASSAY OF MAGNESIUM Completed 09/29/18 ROUTINE VENIPUNCTURE Completed 09/29/18 COMPREHEN METABOLIC PANEL Completed 09/29/18 THERAPEUTIC ACTIVITIES Completed 09/29/18 PT EVAL MOD COMPLEX 30 MIN Completed 09/29/18 TX/PRO/DX INJ SAME DRUG DIRECTORY ASSISTANCE OPERATOR Completed 09/29/18 HYDRATE IV INFUSION ADD-ON Completed 09/29/18 THERAPEUTIC ACTIVITIES Completed 09/29/18 TX/PRO/DX INJ SAME DRUG DIRECTORY ASSISTANCE OPERATOR Completed 09/29/18 HYDRATE IV INFUSION ADD-ON Completed 09/29/18 COMPLETE CBC W/AUTO DIFF WBC Completed 09/29/18 ASSAY OF CK (CPK) Completed 09/29/18 ROUTINE VENIPUNCTURE Completed 09/29/18 METABOLIC PANEL TOTAL CA Completed 09/29/18 THERAPEUTIC ACTIVITIES Completed 09/29/18 METABOLIC PANEL TOTAL CA Completed 09/29/18 MORPHINE SULFATE INJECTION Completed 09/29/18 DRUG TEST DEF 1-7 CLASSES Completed 09/29/18 HOSPITAL OBSERVATION SERVICES PER HOUR Completed 09/29/18 MORPHINE SULFATE INJECTION Completed 09/29/18 DRUG TEST DEF 8-14 CLASSES Completed 09/29/18 MORPHINE SULFATE INJECTION Completed 09/29/18 MOBILITY CURRENT STATUS Completed 09/29/18 MOBILITY GOAL STATUS Completed 09/29/18 EMERGENCY DEPT VISIT Completed 09/06/18 COMPLETE CBC [...] tomography of head without Completed 09/29/18 ALICE RODRIGUEZ- Sergio contrast X-ray of chest, single view Completed 10/20/18 CHERRY SILVA HAIR BLENDER Encounters Encounter Location Arrival/Admit Date Discharge/Depart Date Attending Provider Departed [place] 10/20/18 12:51pm 10/20/18 3:08pm HERBER BENZ [facility] Discharged [place] 09/29/18 7:34am 10/02/18 2:45pm PATRICK WELCH, Inpatient (obs) [facility] Registered [place] 09/14/18 2:16pm [facility] Departed [place] 09/06/18 7:32pm 09/06/18 8:55pm HERBER BENZ [facility] Recent Diagnosis
[2019-03-07] MEDS ORDERED: NA CHLORIDE 0.9% 500 ML ONE (08:21)
[2019-03-07] MEDS ORDERED: HEPARIN 5000 UNIT/ML 1 ML VIAL ONE (09:30)
[2019-03-07] MEDS ORDERED: MIDAZOLAM HCL 2 MG/2 ML INJ ONE (09:30)
[2019-03-07] MEDS ORDERED: FENTANYL CITR 100 MCG/2 ML ONE ×2 (09:30→10:03)
[2019-03-07] MEDS ORDERED: NITROGLYCERIN 100 MCG/ML SYR (for cath lab use only) IV ONE (09:31)
[2019-03-07] MEDS ORDERED: ATROPINE SULF 1 MG/10 ML SYR IV ONE (09:31)
[2019-03-07] MEDS ORDERED: NICARDIPINE HCL 25 MG/10 ML IV ONE (09:31)
[2019-03-07] MEDS ORDERED: NA CHLORIDE 0.9% 0 ML ONE (09:31)
[2019-03-07] MEDS ORDERED: FLUMAZENIL 0.1 MG/ML (5 mL VIAL) IV ONE (09:36)
[2019-03-07] MEDS ORDERED: NA CHLORIDE 0.9% 0 ML IV ONE (09:38)
--- NOTE | 2019-03-08 11:41 | OP ---
Surgeon: Sheldon Davidson MD Additional Attending Physician: Dr. Jarad Jiménez. Procedures: Left heart catheterization, coronary left ventricular angiography. Indications: Dyspnea, possible angina with an abnormal myocardial perfusion imaging stress test. Findings: The patient has left dominant coronary circulation. He has no significant coronary stenos is, just minimal plaque and lumen irregularities throughout the coronary tree. His ejection fraction is hyperdynamic. It is more than 80%. His left ventricular end-diastolic pressure was 22, elevated , and he has either severe hypertensive heart disease or restrictive cardiomyopathy causing diastolic congestive heart failure without coronary heart disease. Procedure In Detail: The patient was brought to the cardiac construction or leak gang laborer in a fasting state. He gave in formed consent, prepared and draped in usual sterile fashion. We attempted to use a right radial janey zapata, and we were able to enter the artery with the tip of the needle, but we could not cannulate th e artery at all. It was felt likely to be very tortuous, diffusely diseased, so we abandoned the rad ial approach. We returned to the right femoral approach. We prepared and draped that area as well a nesthetize the tissues over the right femoral artery using lidocaine about 10 cc. I enter the artery using an 18-gauge needle, cannulated it with a short J-wire, placed a 4-Hungarian sheath, and we used t his for the rest of the procedure. We used a JL4 4-Hungarian, 3DRC 4-Hungarian, and 4-Hungarian angled pigtai l to angiogram left coronary, right coronary, and left ventricle respectively. At the end of the pro cedure, the catheter was withdrawn over a wire. Angiogram was done through the sheath. Adequate khushbu becky was seen. We closed the arteriotomy using an Angio-Seal device. Complications from the procedu re, none. Estimated Blood Loss: 20 cc. CALEB/ITALIA Voice ID: [id number] Report ID: [id number]
== END 2019-03-07 12:20 | disposition home health service (06) ==
LOC: CCL 07:23
PROVIDERS: ATTEND Internal Medicine
DX: R94.39 Abnormal result of other cardiovascular function study (principal); I11.0 Hypertensive heart disease with heart failure; I50.30 Unspecified diastolic (congestive) heart failure; I48.2 Chronic atrial fibrillation; I20.8 Other forms of angina pectoris; E78.2 Mixed hyperlipidemia; F17.210 Nicotine dependence, cigarettes, uncomplicated
CPT/HCPCS: 36415; 71046; 80048; 85025; 85610; 85730; 93458; C1760; C1893; J0583; J1644; J2250; J3010

== ENCOUNTER 2019-03-12 07:37 | Emergency (ER) | payer OTHER, BC ==
--- OUTSIDE RECORDS SUMMARY | 2019-03-12 07:39 | XMS REPORT | Clinical Summary ---
:1955 Author Organization [facility] Address [address] [place] [address] Care Team Providers Name Role Phone Jarad [...] Grady MD 09/26/2018 Office Visit Orthopedic Surgery Nelson Grady Closed displaced fracture of surgical neck of left humerus, unspecified fracture morphology, initial encounter (Primary Dx); MD Rafael Left elbow pain; Acute pain of left shoulder after 03/11/2018 Family History Medical History Relation Name Comments [...] 147 kg (323 lb) 12/11/2018 1:47 PM [facility] Height 193 cm (6' 4") 12/11/2018 1:47 PM [facility] Body Mass Index 39.32 12/11/2018 1:47 PM [facility] Plan of Treatment Health Maintenance Due Date Last Done Comments COLON CANCER SCREENING 2007 SHINGLES VACCINES (#1) 2007 INFLUENZA VACCINE 05/10/2019 08/10/2015 Procedures Procedure Name Priority Date/Time Associated Comments Diagnosis MT ARTHROCENTESIS Routine 11/13/2018 2:10 Closed fracture of Results for this ASPIR&/INJ MAJOR PM [facility] proximal end of procedure are in JT/BURSA W/O US left humerus with the results routine healing, section. unspecified fracture morphology, subsequent encounter XR SHOULDER 2+ VW LEFT Routine 11/13/2018 1:17 Closed fracture of Results for this PM [facility] proximal end of procedure are in left humerus with the results routine healing, section. unspecified fracture morphology, subsequent encounter XR SHOULDER 2+ VW LEFT Routine 10/16/2018 2:01 Left shoulder pain, Results for this PM [facility] unspecified procedure are in chronicity the results section. XR SHOULDER 2+ VW LEFT Routine 09/26/2018 2:29 Acute pain of left Results for this PM [facility] shoulder procedure are in the results section. XR ELBOW 3+ VW LEFT Routine 09/26/2018 2:28 Left elbow pain Results for this PM [facility] procedure are in the results section. XR UPPER EXTREMITY Routine 09/14/2018 3:42 Results for this EXTERNAL STUDY PM [facility] procedure are in the results section. after 03/11/2018 Results Large Joint Arthrocentesis: shoulder, L subacromial bursa (11/13/2018 2:10 PM [facility]) Narrative Performed At Nelson Grady MD 11/14/20184:55 PM Large Joint Arthrocentesis: shoulder, L subacromial bursa Consent given by: patient Site marked: site marked Timeout: Immediately prior to procedure a time out was called to verify the correct patient, procedure, equipment, child support agent and site/side marked as required Supporting Documentation [...] Shoulder 2+ Vw Left (11/13/2018 1:17 PM [facility])Only the most recent of3 resultswithin the time period is included. Specimen Narrative Performed At X-rays left shoulder reveal a varus impacted surgical neck fracture of the HM [facility] humerus which is unchanged in position and healing with abundant callus. Performing Organization Address City/State/Zipcode Phone Number [facility] [address] [place] [address] XR Elbow 3+ Vw Left (09/26/2018 2:28 PM CLEAR[facility] CUTTER) Specimen Narrative Performed At X-rays of the left elbow reveal no obvious fracture or dislocation. [facility] Performing Organization Address City/[facility]/Zipcode Phone Number [facility] [address] [place] [address] XR Upper Extremity External Study (09/14/2018 3:42 PM CLE[facility] C[facility]TER) Specimen Narrative Performed At This exam was not acquired at a [facility] facility and has not been [facility] interpreted by a [facility] Provider.The exam was imported into our imaging system for comparisons purposes. Performing Organization Address City/[facility] Phone Number [facility] [address] [place] [address] after 03/11/2018 Insurance Payer Benefit Plan / Subscriber ID Effective Dates Phone Address Type Group MEDICARE MEDICARE PART A xxxxxxxxxxx 2018-Present [place], [place] Medicare AND B BCBS BCBS CHOICE xxxxxxxxxxxx 2018-Present PPO PPO/[employer] PPO Advance Directives Patient has advance care planning documents on file. For more information, please contact:Diogenes Richards[address] [place] [address]
--- OUTSIDE RECORDS SUMMARY | 2019-03-12 07:42 | XMS REPORT | Continuity of Care Document ---
:1955 Author Organization Interface Problems Problem Status Onset Classification Date Comments Source Date Reported CARAL TUNNEL Active 02/05/20 [facility] CARAL TUNNEL Active 02/05/20 [facility] NEW ONSET A FIB Active 11/26/19 [facility] W/CHEST PAIN [address] [place] [address] 729.5 - PAIN IN Active 02/01/20 [facility] Asthma Resolved Problem 10/16/2016 [facility] [place] Diabetes Resolved Problem 10/16/2016 [facility] [place] Hypertension Resolved Problem 10/16/2016 [facility] [place] CHEST PAIN NOS Active [facility] CARPAL TUNNEL Active [facility] RIGHT HAND Active [facility] [place] NERVE DAMAGE [place] Medications Medication Details Route Status Patient Ordering Order Source Instructions Provider Date rivaroxaban 20 mg, 1 tab, Inactive 11/28[facility] Route: PO, 2014 Medical Drug form: Center TAB, QPM, Start date: 11/28/14 17:00:00, Duration: 30 day, Stop date: 12/27/14 17:00:00Notes: (Same as: Xarelto) Administer with food albuterol CFC free 1 puff, Active 11/28[facility] 90 mcg/inh INHALATION, 2015 Medical inhalation aerosol Q4H, for Center with adapter wheezing, # 1 ea, 3 Refill(s) benzocaine-menthol 1 lozenge, Inactive 11/28[facility] topical Route: MUCOUS 2015 Medical MEM, Drug [facility] Form: CARLOS, Q4H, PRN Cough, Start date: 11/28/14 11:57:00, Duration: 30 day, Stop date: 12/28/14 11:56:00Notes: Cepacol lozenges Dispense 1 box=16 lozenges (Same As: Cepacol Lozenges) rivaroxaban 20 mg 20 mg=1 tab, Active [place] oral tablet PO, QPM, # 30 2014 Medical tab, 3 Center Refill(s) 24 HR Metoprolol 50 mg=1 tab, Active [facility] Tartrate 50 MG PO, BID, # 60 2014 Medical Extended Release tab, 3 Center Tablet [Toprol] Refill(s) lisinopril 5 mg oral 5 mg=1 tab, Active [facility] tablet PO, Daily, # 2014 Medical 30 tab, 3 Center Refill(s) Hydrochlorothiazide 25 mg=1 tab, Active [place] 25 MG Oral Tablet PO, Daily, # 2015 Medical 30 tab, 3 Center Refill(s) Aspirin 81 MG 81 mg=1 tab, Active [facility] Enteric Coated PO, Daily, # 2014 Medical Tablet 30 tab, 3 Center Refill(s) atorvastatin 40 mg 40 mg=1 tab, Active [facility] oral tablet PO, Bedtime, # 2014 Medical 30 tab, 3 Center Refill(s) Guaifen DM 1 tab, Route: Inactive [facility] PO, Dosing 2014 Medical [facility] 134.318, kg, Q4H, PRN as needed for cough, Start date: 11/28/14 11:45:00, Duration: 30 day, Stop date: 12/28/14 11:44:00 Hydrochlorothiazide 25 mg, 1 tab, Inactive [facility] Route: PO, 2014 Medical Drug form: Center TAB, Daily, Dosing Weight 134.318, kg, Start date: 11/28/14 10:30:00, Duration: 30 day, Stop date: 12/28/14 9:00:00Notes: (Same as: Hydrodiuril) With food. Xarelto 20 mg, Route: Inactive [facility] PO, QPM, 2014 Medical Dosing Weight [...] [Lasix] Route: PO, 2014 Medical Drug form: [facility] TAB, QAM, Dosing Weight 134.318, kg, Start date: 11/28/14 9:00:00, Duration: 30 day, Stop date: 12/27/14 9:00:00Notes: (Same as: Lasix) May cause GI upset. Give with food or milk. 24 HR Metoprolol 50 mg, 1 tab, Inactive [facility] Tartrate 50 MG Route: PO, 2014 Medical Extended Release Drug form: [facility] Tablet [Toprol] ERTAB, BID, Start date: 11/28/14 9:00:00, Duration: 30 day, Stop date: 12/27/14 17:00:00Notes: (Same as: Toprol XL) May split tab, but do not crush. Mag-Ox 400 400 mg, 1 tab, Inactive [facility] Route: PO, 2014 Medical Drug form: [facility] TAB, ONCE, Start date: 11/27/14 10:28:00, Stop date: 11/27/14 10:28:00Notes: (Same as: Mag-Ox 400) Magnesium oxide [id number] elemental magnesium Dose=____mg magnesium oxide (___mg elemental magnesium) Magnesium Oxide 500 500 mg, Route: Inactive [facility] MG Oral Tablet PO, Drug form: 2014 Medical TAB, ONCE, [facility] Dosing Weight 134.318, kg, Start date: 11/27/14 10:23:00, Stop date: 11/27/14 10:23:00 Lasix 20 mg, 2 mL, Inactive [facility] Route: IVP, 2014 Medical Drug form: [facility] INJ, ONCE, Dosing Weight 134.318, kg, Start date: 11/27/14 10:20:00, Stop date: 11/27/14 10:20:00Notes: (Same as: Lasix) heparin additive 500 mL, Rate: No Longer [facility] 25,000 unit [14 29.96 ml/hr, Active 2014 Medical unit/kg/hr] + Premix Infuse over: [facility] Diluent Dextrose 5% 16.7 hr, 500 mL Route: IV, Dosing Weight 107 kg, Total Volume: 500 mL, Start date: 11/27/14 10:14:00, Duration: 30 day, Stop date: 12/27/14 10:13:00 aspirin 81 mg, 1 tab, No Longer [facility] Route: PO, Active 2014 Medical Drug form: [facility] ECTAB, Daily, Dosing Weight 134.318, kg, Priority: Routine, Start date: 11/27/14 9:00:00, Duration: 30 day, Stop date: 12/26/14 9:00:00Notes: Do not crush or chew. (Same As: Ecotrin) Dextromethorphan 10 mL, Route: No Longer [facility] Hydrobromide 2 MG/ML PO, Dosing Active 2014 Medical / Guaifenesin 40 Weight Center MG/ML Oral Solution 134.318, kg, Q4H, Start date: 11/27/14 0:00:00, Duration: 30 day, Stop date: 12/26/14 20:00:00 Dextromethorphan 10 mL, Route: No Longer [facility] Hydrobromide 2 MG/ML PO, Drug Form: Active 2014 Medical / Guaifenesin 40 SYRP, Dosing Center MG/ML Oral Solution Weight 134.318, kg, Q4H, PRN Cough, Start date: 11/26/14 23:00:00, Stop date: 12/26/14 23:59:00Notes: (dextromethorp modi-guaifenesi n 10-100mg/5ml 10 ml oral SOLN ud) (Same as: Robitussin DM) codeine-guaiFENesin 5 mL, Route: Inactive [facility] PO, Drug Form: 2014 Medical LIQ, Q6H, PRN Center Cough, Start date: 11/26/14 20:20:39, Stop date: 12/26/14 20:14:00Notes: (Same As: Louisitussin AC) codeine-guaiFENesin 5 mL, Route: Inactive [facility] PO, Drug Form: 2014 Medical LIQ, [...] Xopenex 0.63 mg, 3 mL, No Longer [place] Route: NEB, Active 2014 Medical Drug form: [...] as:Atrovent) Lisinopril 5 mg, 1 tab, Inactive [place] Route: PO, 2014 Medical Drug form: Center TAB, ONCE, Dosing Weight 134.318, kg, Priority: NOW, Start date: 11/26/14 15:53:00, Stop date: 11/26/14 15:53:00Notes: (Same as: Prinivil, Zestril) Adenosine 112.8271 mg, Inactive [place] 37.61 mL, 2014 Medical Route: IVP, [facility] Drug form: INJ, ONCE, Dosing Weight 134.318, kg, Priority: Routine, Start date: 11/26/14 15:50:00, Stop date: 11/26/14 15:50:00Notes: For diagnostic use only. (Same as: Adenoscan) Tylenol 650 mg, 2 tab, No Longer [place] Route: PO, Active 2014 Medical Drug form: [place] TAB, Q6H, Dosing Weight 134.318, kg, PRN Pain Score 1-3, Start date: 11/26/14 14:26:00, Duration: 30 day, Stop date: 12/26/14 14:25:00Notes: Do not exceed 4 gm/day. (Same as: Tylenol) Lipitor 80 mg, 1 tab, No Longer [facility] Route: PO, Active 2014 Medical Drug form: Center TAB, Bedtime, Dosing Weight 134.318, kg, Priority: NOW, Start date: 11/26/14 12:56:00, Duration: 30 day, Stop date: 12/25/14 21:00:00Notes: Same as Lipitor Albuterol 0.833 3 ml, Route: Inactive [facility] MG/ML / Ipratropium INHALATION, 2014 Medical [place] 0.167 MG/ML Drug Form: [facility] Inhalant Solution SOLN, Dosing [DuoNeb] Weight 134.318, kg, PRN, PRN Respiratory Protocol, Start date: 11/26/14 12:51:00, Duration: 30 day, Stop date: 12/26/14 13:50:00Notes: (Same as: Duoneb) Lisinopril 5 mg, 1 tab, No Longer [place] Route: PO, Active 2014 Medical Drug form: Center TAB, Daily, Dosing Weight 134.318, kg, Priority: NOW, Start date: 11/26/14 12:51:00, Stop date: 12/26/14 9:00:00Notes: (Same as: Prinivil, Zestril) metoprolol tartrate 25 mg, 1 tab, No Longer [place] Route: PO, Active 2014 Medical Drug form: [facility] TAB, Q6H, Dosing Weight 134.318, kg, Priority: NOW, Start date: 11/26/14 12:51:00, Stop date: 12/26/14 12:00:00Notes: (Same as: Lopressor) atorvastatin 80 mg, 1 tab, Inactive [place] Route: PO, 2014 Medical Drug form: Center TAB, Bedtime, Dosing Weight 134.318, kg, Priority: NOW, Start date: 11/26/14 12:51:00, Duration: 30 day, Stop date: 12/25/14 21:00:00Notes: Same as Lipitor aspirin 81 mg, Route: Inactive [facility] PO, Drug form: 2014 Medical ECTAB, Daily, Center Dosing Weight 134.318, kg, Priority: NOW, Start date: 11/26/14 12:51:00, Duration: 30 day, Stop date: 12/26/14 9:00:00 Albuterol 0.09 1 puff, No Longer [place] MG/ACTUAT Inhalant INHALATION, Active 2014 Medical Solution QID, wheezing, Center # 1 ea, 0 Refill(s) Allergies, Adverse Reactions, Alerts Substance Category Reaction Severity Reaction Status Date Comments Source type Reported HYDROcodone Assertion Drug Active [facility] allergy [place] Immunizations Immunization Date Given Site Status Last Updated Comments Source Results Order Name Results Value Reference Date Interpretation Comments Source Range CHEM PANEL Phosphorus 3.5 mg/dL 2.5 - 4.5 11/28 [facility] CHEM PANEL Magnesium Lvl 1.9 mg/dL 1.8 - 2.4 11/28 [facility] ELECTROLYTE AGAP 10.3 meq/L 10.0 - 11/28 [facility] S 20.0 [facility] ELECTROLYTE Calcium Lvl 8.4 mg/dL 8.5 - 10.5 11/28 [facility] ELECTROLYTE eGFR 99 11/28 1Result Comment: The eGFR is calculated using the CKD-EPI formula. In most young, healthy individuals the eGFR will be > 90 mL/min/1.73m2. The eGFR declines with age. An eGFR of 60-89 may be normal in [facility] mL/min/1.7 some populations, particularly the elderly, for whom the CKD-EPI formula has not been extensively validated. Use of the eGFR is not recommended in the following populations: [address] Individuals with unstable creatinine concentrations, including [...] CO2 27 meq/L 24 - 32 11/28 [facility] ELECTROLYTE Chloride Lvl 106 meq/L 95 - 109 11/28 [facility] ELECTROLYTE Potassium Lvl 4.3 meq/L 3.5 - 5.1 11/28 [facility] ELECTROLYTE Creatinine 0.8 mg/dL 0.5 - 1.4 11/28 [facility] ELECTROLYTE Sodium Lvl 139 meq/L 135 - 145 11/28 [facility] ELECTROLYTE BUN 18 mg/dL 7 - 22 11/28 [facility] ELECTROLYTE Glucose Lvl 132 mg/dL 70 - 99 11/28 4Interpretive Data: Adult reference range values reflect the clinical guidelines [facility] of the [place] [employer]. [facility] HEMATOLOGY PTT 54.7 s 22.9 - 11/28 11Interpretiv [facility] 35.8 e Data: [facility] Therapeutic Range: 57 - 92 Seconds HEMATOLOGY Segs 63.9 % 45.0 - 11/28 [facility] 75.0 [facility] HEMATOLOGY Eosinophils 1.5 % 0.0 - 4.0 11/28 [facility] HEMATOLOGY Monocytes 8.1 % 2.0 - 12.0 11/28 [facility] HEMATOLOGY Basophils 1.1 % 0.0 - 1.0 11/28 [facility] HEMATOLOGY Eosinophils # 0.1 K/CMM 0.0 - 0.5 11/28 [facility] HEMATOLOGY Monocytes # 0.6 K/CMM 0.0 - 0.8 11/28 [facility] HEMATOLOGY Lymphocytes 25.4 % 20.0 - 11/28 40.0 [facility] HEMATOLOGY Basophils # 0.1 K/CMM 0.0 - 0.2 11/28 [facility] HEMATOLOGY Lymphocytes # 1.9 K/CMM 1.0 - 5.5 11/28 [facility] HEMATOLOGY Segs-Bands # 4.8 K/CMM 1.5 - 8.1 11/28 [facility] HEMATOLOGY MPV 8.9 fL 7.4 - 10.4 11/28 [facility] HEMATOLOGY Platelet 178 K/CMM 133 - 450 11/28 [facility] HEMATOLOGY RDW 16.5 % 11.5 - 11/28 14.5 [facility] HEMATOLOGY Hgb 14.1 g/dL 14.0 - 11/28 18.0 [facility] HEMATOLOGY MCHC 33.4 g/dL 32.0 - 11/28 36.0 [facility] HEMATOLOGY MCH 30.3 pg 27.0 - 11/28 31.0 [facility] HEMATOLOGY RBC 4.65 M/CMM 4.70 - 11/28 6.10 [facility] HEMATOLOGY WBC 7.5 K/CMM 3.7 - 10.4 11/28 [facility] HEMATOLOGY MCV 90.9 fL 80.0 - 11/28 94.0 [facility] HEMATOLOGY Hct 42.3 % 42.0 - 11/28 54.0 [facility] HEMATOLOGY INR 1.07 0.85 - 11/28 8Interpretive Data: RECOMMENDED RANGES FOR PROTIME INR: [facility] 1. 2.0-3.0 for most medical and surgical thromboembolic states. Medical 2.5-3.5 for artificial heart valves and recurrent embolism. Center INR SHOULD BE USED ONLY FOR PATIENTS ON STABLE ANTICOAGULANT THERAPY. HEMATOLOGY PT 13.9 s 12.0 - 11/28 [facility] 14.7 [facility] PARATHYROID Ca Ion WB 1.12 1.05 - 11/28 [facility] PROFILE mMol/L 1. [facility] PARATHYROID Ca Norm WB 1.10 1.05 - 11/28 [facility] PROFILE mMol/L 1. [facility] HEMATOLOGY PTT 66.5 s 22.9 - 11/28 12Interpretiv [facility] 35.8 e Data: [facility] Heparin [place] Therapeutic Range: 57 - 92 Seconds HEMATOLOGY PTT 71.0 s 22.9 - 11/27 13Interpretiv [facility] 35.8 e Data: [facility] Therapeutic Range: 57 - 92 Seconds HEMATOLOGY INR 1.08 0.85 - 11/27 9Interpretive Data: RECOMMENDED RANGES FOR PROTIME INR: [facility] . 2.0-3.0 for most medical and surgical thromboembolic states. Medical 2.5-3.5 for artificial heart valves and recurrent embolism. Center INR SHOULD BE USED ONLY FOR PATIENTS ON STABLE ANTICOAGULANT THERAPY. HEMATOLOGY PT 14.1 s 12.0 - 11/27 [facility] 14.7 [facility] CARDIAC Troponin-T null 0.000 - 11/27 [facility] ENZYMES 0.100 /2014 [facility] CARDIAC Total CK 60 unit/L 12 - 191 11/27 [facility] ENZYMES /2014 [facility] CARDIAC Troponin-I null 0.00 - 11/27 [facility] ENZYMES 0.40 [facility] CHEM PANEL Phosphorus 4.2 mg/dL 2.5 - 4.5 11/27 [facility] CHEM PANEL Magnesium Lvl 1.8 mg/dL 1.8 - 2.4 11/27 [facility] ELECTROLYTE AGAP 10.5 meq/L 10.0 - 11/27 [facility] S 20.0 [facility] ELECTROLYTE eGFR 83 11/27 2Result Comment: The eGFR is calculated using the CKD-EPI formula. In most young, healthy individuals the eGFR will be > 90 mL/min/1.73m2. The eGFR declines with age. An eGFR of 60-89 may be normal in [facility] mL/min/1. some populations, particularly the elderly, for [...] CO2 26 meq/L 24 - 32 11/27 [facility] ELECTROLYTE Calcium Lvl 8.3 mg/dL 8.5 - 10.5 11/27 [facility] ELECTROLYTE Chloride Lvl 106 meq/L 95 - 109 11/27 [facility] ELECTROLYTE Sodium Lvl 138 meq/L 135 - 145 11/27 [facility] 2014 [facility] ELECTROLYTE BUN 18 mg/dL 7 - 22 11/27 [facility] ELECTROLYTE Glucose Lvl 130 mg/dL 70 - 99 11/27 5Interpretive Data: Adult reference range values reflect the clinical guidelines [facility] of the [place] [employer]. [facility] ELECTROLYTE Potassium Lvl 4.5 meq/L 3.5 - 5.1 11/27 [facility] ELECTROLYTE Creatinine 1.0 mg/dL 0.5 - 1.4 11/27 [facility] HEMATOLOGY PT 14.3 s 12.0 - 11/27 [facility] 14.7 [facility] HEMATOLOGY INR 1.10 0.85 - 11/27 10Interpretive Data: RECOMMENDED RANGES FOR PROTIME INR: [facility] . 2.0-3.0 for most medical and surgical thromboembolic states. Medical 2.5-3.5 for artificial heart valves and recurrent embolism. Center INR SHOULD BE USED ONLY FOR PATIENTS ON STABLE ANTICOAGULANT THERAPY. HEMATOLOGY Eosinophils # 0.1 K/CMM 0.0 - 0.5 11/27 [facility] HEMATOLOGY Segs-Bands # 9.2 K/CMM 1.5 - 8.1 11/27 [facility]2014 [facility] HEMATOLOGY Lymphocytes # 0.7 K/CMM 1.0 - 5.5 11/27 [facility]2014 [facility] HEMATOLOGY Monocytes # 0.5 K/CMM 0.0 - 0.8 11/27 2014 [facility] HEMATOLOGY Eosinophils 0.8 % 0.0 - 4.0 11/27 [facility] HEMATOLOGY Monocytes 4.8 % 2.0 - 12.0 11/27 [facility] HEMATOLOGY Lymphocytes 6.7 % 20.0 - 11/27 [place] 40.0 /2014 [facility] HEMATOLOGY Segs 87.7 % 45.0 - 11/27 [place] 75.0 /2014 [facility] HEMATOLOGY MPV 8.9 fL 7.4 - 10.4 11/27 [facility] HEMATOLOGY Platelet 204 K/CMM 133 - 450 11/27 [facility] HEMATOLOGY RDW 16.9 % 11.5 - 11/27 [place] 14.5 /2014 [facility] HEMATOLOGY MCH 30.2 pg 27.0 - 11/27 [place] 31.0 /2014 [facility] HEMATOLOGY MCV 90.9 fL 80.0 - 11/27 [place] 94.0 /2014 [facility] HEMATOLOGY Hct 43.7 % 42.0 - 11/27 [place] 54.0 /2014 [facility] HEMATOLOGY MCHC 33.2 g/dL 32.0 - 11/27 [place] 36.0 [facility] HEMATOLOGY Hgb 14.5 g/dL 14.0 - 11/27 [place] 18.0 [facility] HEMATOLOGY RBC 4.81 M/CMM 4.70 - 11/27 [place] 6.10 /2014 [facility] HEMATOLOGY WBC 10.5 K/CMM 3.7 - 10.4 11/27 [facility] PARATHYROID Ca Norm WB 1.05 1.05 - 11/27 [facility] PROFILE mMol/L 1. [facility] PARATHYROID Ca Ion WB 1.08 1.05 - 11/27 [facility] PROFILE mMol/L 1. [facility] URINE AND UA Color Yellow Yellow 11/26 [facility] *NA* Center (11/26/14 5:04 PM) URINE AND UA Glucose Negative Negative 11/26 [facility] STOOL mg/dL mg/dL /2014 [facility] URINE AND UA Spec Grav 1.012 <=1.030 11/26 [facility] URINE AND UA Turbidity Clear Clear 11/26 [facility] (11/26/14 5:04 PM) [facility] URINE AND UA pH 6.0 5.0 - 8.0 11/26 [facility] URINE AND UA Protein 30 mg/dL Negative 11/26 [facility] STOOL mg/dL /2014 [facility] URINE AND UA <=1.0 0.1 - 1.0 11/26 [facility] Urobilinogen mg/dL /2014 [facility] URINE AND UA Sq Epi None Seen 11/26 [facility] /2014 [facility] URINE AND UA WBC 14 /HPF 0 - 5 11/26 [facility] /2014 [facility] URINE AND UA Leuk Est Moderate Negative 11/26 [facility] *ABN* [place] (11/26/14 5:04 PM) URINE AND UA RBC 3 /HPF 0 - 2 11/26 [facility] /2014 [facility] URINE AND UA Mucus Few /LPF None Seen 11/26 [facility] STOOL /LPF /2014 [facility] URINE AND UA Ketones Negative Negative 11/26 [facility] STOOL mg/dL mg/dL [facility] URINE AND UA Bili Negative Negative 11/26 [facility] *NA* [facility] (11/26/14 5:04 PM) URINE AND UA Blood Negative Negative 11/26 [facility] /2014 [facility] (11/26/14 5:04 PM) [place] URINE AND UA Nitrite Negative Negative 11/26 [facility] (11/26/14 5:04 PM) [facility] CARDIAC Total CK 55 unit/L 12 - 191 11/26 [facility] ENZYMES /2014 [facility] CARDIAC Troponin-T null 0.000 - 11/26 [facility] ENZYMES 0.100 /2014 [facility] CARDIAC Troponin-I null 0.00 - 11/26 [facility] ENZYMES 0.40 /2014 [facility] DRUG SCREEN U Methadone Negative Negative 11/26 [facility] *NA* [place] (11/26/14 1:25 PM) DRUG SCREEN U Propoxyph Negative Negative 11/26 [facility] *NA* [facility] (11/26/14 1:25 PM) DRUG SCREEN UDS Note See Note 7 11/26 7Interpretive Data: Drugs reported as positive have not been confirmed by a second method and should be used for medical purposes only. To order Medical *NA* confirmation, contact laboratory. [facility] (11/26/14 1:25 PM) note: Below are cut-off [...] DRUG SCREEN U Benzodia Negative Negative 11/26 [facility]* [facility] (11/26/14 1:25 PM) DRUG SCREEN U Gema Scr Negative Negative 11/26 [facility] (11/26/14 1:25 PM) DRUG SCREEN U Cannab Scr Negative Negative 11/26 [facility] (11/26/14 1:25 PM) DRUG SCREEN U Cocaine Scr Negative Negative 11/26 [facility] (11/26/14 1:25 PM) DRUG SCREEN U Amph Scr Negative Negative 11/26 [facility] (11/26/14 1:25 PM) DRUG SCREEN U Opiate Scr Negative Negative 11/26 [facility] (11/26/14 1:25 PM) DRUG SCREEN U Phencyc Scr Negative Negative 11/26 [facility] (11/26/14 1:25 PM) ELECTROLYTE AGAP 11.0 meq/L 10.0 - 11/26 [facility] S 20.0 [facility] ELECTROLYTE eGFR 99 11/26 3Result Comment: The eGFR is calculated using the CKD-EPI formula. In most young, healthy individuals the eGFR will be > 90 mL/min/1.73m2. The eGFR declines with age. An eGFR of 60-89 may be normal in [facility] S mL/min/1.7 /2014 some populations, particularly the elderly, for whom the CKD-EPI formula has not been extensively validated. Use of the eGFR is not recommended in the following populations: [place] [address] Center Individuals with unstable creatinine concentrations, including [...] CO2 27 meq/L 24 - 32 11/26 [facility] ELECTROLYTE Calcium Lvl 9.1 mg/dL 8.5 - 10.5 11/26 [facility] ELECTROLYTE Creatinine 0.8 mg/dL 0.5 - 1.4 11/26 [facility] Lvl [facility] ELECTROLYTE Sodium Lvl 136 meq/L 135 - 145 11/26 [facility] ELECTROLYTE Potassium Lvl 4.0 meq/L 3.5 - 5.1 11/26 [facility] ELECTROLYTE Chloride Lvl 102 meq/L 95 - 109 11/26 [facility] ELECTROLYTE BUN 10 mg/dL 7 - 22 11/26 [facility] ELECTROLYTE Glucose Lvl 128 mg/dL 70 - 99 11/26 6Interpretive Data: Adult reference range values reflect the clinical guidelines of the [place] [employer]. [facility] HEMATOLOGY Platelet 185 K/CMM 133 - 450 11/26 [facility] HEMATOLOGY RDW 16.7 % 11.5 - 11/26 14.5 [facility] HEMATOLOGY MPV 8.5 fL 7.4 - 10.4 11/26 [facility] HEMATOLOGY MCHC 33.1 g/dL 32.0 - 11/26 36.0 [facility] HEMATOLOGY RBC 5.17 M/CMM 4.70 - 11/26 [place] 6.10 [facility] HEMATOLOGY Hct 46.9 % 42.0 - 11/26 54.0 [facility] HEMATOLOGY Hgb 15.5 g/dL 14.0 - 11/26 18.0 [facility] HEMATOLOGY MCV 90.7 fL 80.0 - 11/26 [place] 94.0 [facility] HEMATOLOGY MCH 30.0 pg 27.0 - 11/26 31.0 [facility] HEMATOLOGY WBC 7.3 K/CMM 3.7 - 10.4 11/26 [facility] HEMATOLOGY Segs-Bands # 6.7 K/CMM 1.5 - 8.1 11/26 [facility] HEMATOLOGY Basophils 0.1 % 0.0 - 1.0 11/26 [facility] HEMATOLOGY Monocytes 1.4 % 2.0 - 12.0 11/26 [facility] HEMATOLOGY Eosinophils 0.1 % 0.0 - 4.0 11/26 [facility] HEMATOLOGY Lymphocytes 6.3 % 20.0 - 11/26 [facility] 40.0 [facility] HEMATOLOGY Segs 92.1 % 45.0 - 11/26 [facility] 75.0 [facility] HEMATOLOGY Monocytes # 0.1 K/CMM 0.0 - 0.8 11/26 [facility] HEMATOLOGY Lymphocytes # 0.5 K/CMM 1.0 - 5.5 11/26 [facility] LIPIDS VLDL 11 11/26 [facility] LIPIDS Trig 53 mg/dL <=149 11/26 [facility] mg/dL [facility] LIPIDS Chol 162 mg/dL <=199 11/26 [facility] mg/dL [facility] LIPIDS HDL 69 mg/dL >=61 mg/dL 11/26 [facility] LIPIDS CHD Risk 2.35 4.00 - 11/26 [facility] 7.30 [facility] LIPIDS LDL 82 mg/dL <=99 mg/dL 11/26 [facility] (Calculated) [facility] SPECIAL Hgb A1C 5.8 % <=5.6 % 11/26 [facility] CHEMISTRY [facility] THYROID TSH 0.537 0.360 - 11/26 [facility] PANEL uIU/mL 3.740 [facility] Chest 1view Chest 1view EXAM: XR CHEST ONE VIEW: 11/26 - [facility] DX DX /2014 - [facility] This report was dictated by a [employer] Groom/Fellow. I have personally reviewed the images as [...] Comments Source Systolic (mm Hg) 146 11/28/2014 [facility] Diastolic (mm Hg) 81 11/28/2014 [facility] Temperature Oral (F) 96.8 F 11/28/2014 [facility] Systolic (mm Hg) 151 11/28/2014 [facility] Diastolic (mm Hg) 96 11/28/2014 [facility] Systolic (mm Hg) 110 11/28/2014 [facility] Diastolic (mm Hg) 95 11/28/2014 [facility] Temperature Oral (F) 97.3 F 11/28/2014 [facility] Respitory Rate 22 11/28/2014 [facility] Respitory Rate 20 11/28/2014 [facility] Temperature Oral (F) 96.8 F 11/28/2014 [facility] Respitory Rate 18 11/28/2014 [facility] BMI Calculated 35.11 11/26/2014 [facility] Height 195.58 cm 11/26/2014 [facility] Weight 134.318 11/26/2014 [facility] Encounters Location Location Encounter Encounter Reason Attending ADM DC Status Source Details Type Number For Provider Date Date Visit OD [id number] 729.5 - NEREYDA 02/02 Active OPID PAIN IN [facility] Inpatient [id number] Calin[facility]well Sim 11/26 11/28 [facility] /2014 [facility] OP Therapy [id number] Nelson 02/04 03/06 [facility] OP Therapy [id number] [place] 03/09 04/08 [facility] OP Therapy [id number] [place] 09/14 10/14 [facility] [place] /2015 [place] Procedures Procedure Code Date Perfomer Comments Source Appendectomy [id number] [facility] Cholecystectomy [id number] [facility] Gastric bypass [id number] [facility]gu[facility] [id number] [facility] [id number] [facility] Cholecystectomy [id number] [facility] Gastric bypass [id number] [facility]guinal [id number] [facility] [id number] [facility] [place] Cholecystectomy [id number] [facility] [place] Gastric bypass [id number] [facility] [place] Inguinal [id number] [facility] Sugar herniorrhaphy [place]
--- OUTSIDE RECORDS SUMMARY | 2019-03-12 07:42 | XMS REPORT | CCD ---
:1955 Author Organization [facility] Outpatient [facility] Team Providers Name Role Phone Delmar Monet Consulting Provider Allergies, Adverse Reactions, Alerts Substance Reaction Status NKDA Active
--- OUTSIDE RECORDS SUMMARY | 2019-03-12 07:43 | XMS REPORT ---
:1955 Author Organization [facility] Address [address] [place] [address] Care Team Providers Name Role Phone DR CJ RAMIREZ Unavailable Unavailable Problems This patient has no known problems. Allergies, Adverse Reactions, Alerts This patient has no known allergies or adverse reactions. Medications This patient has no known medications. Encounters Start End Encounter Admission Attending Care Care Encounter Date/Time Date/Time Type Type Clinicians Facility Department ID 2019-01-21 2019-01-21 Emergency E [facility] [id number] 21:39:00 23:25:00 CJ Results Test Description Test [...] code=A84) <0.015 ng/mL 0.000-0.045 CBC (INCLUDES AUTOMATED DIFFERENTIAL)*[id number] 22:11:00 Test Item Value Reference Range Comments [...]
[2019-03-12 08:30] LABS: Absolute Lymphocytes (CBC) 1.3 K/uL (0.7-4.9); Absolute Monocytes 0.6 K/uL (0.1-1.3); Absolute Neutrophil 4.7 K/uL (1.8-8.0); Basophils % 0.8 % (0-1.3); Eosinophils % 2.2 % (0-4.4); Hematocrit 42.9 % (39.6-49.0); MPV 8.7 fL (7.6-11.3); Monocytes % 8.3 % (3.3-12.3); Protime INR 1.28; RBC Red Blood Cell Count 4.81 M/uL (4.33-5.43)
[2019-03-12] MEDS ORDERED: ALBUTEROL 2.5 MG/3 ML NEB SOL ONE (08:40)
[2019-03-12 08:50] LABS: ALT/SGPT 34 U/L (12-78); AST/SGOT 17 U/L (15-37); Albumin 3.4 g/dL (3.4-5.0); Alkaline Phosphatase 109 U/L (45-117); BUN Blood Urea Nitrogen 15 mg/dL (7-18); Bicarbonate 31 mmol/L (21-32); Bilirubin Direct 0.4 mg/dL (0-0.2); Glucose Level 124 mg/dL (74-106); Magnesium 2.2 mg/dL (1.8-2.4); NT PRO-BNP 1475 pg/mL (<125); Potassium 4.7 mmol/L (3.5-5.1); Protein, Total 7.8 g/dL (6.4-8.2); Sodium Level 141 mmol/L (136-145); Troponin (Emerg Dept Use Only) < 0.02 ng/mL (0.0-0.045)
--- NOTE | 2019-03-12 08:58 | EDPHYS ---
Physician Documentation [facility] Name: Storm Beltre Age: 63 yrs Sex: Male : 1955 Arrival Date: 03/12/2019 Time: 07:39 Bed 17 Private MD: Jarad Jiménez T ED Physician Dagoberto Morales HPI: 03/12 07:57 This 63 yrs old Male presents to ER via Unassigned with complaints of Chest snw Pain, Cough, Congestion. 07:57 Onset: The symptoms/episode began/occurred gradually, 1 month(s) ago, and became snw persistent. Associated signs and symptoms: Pertinent positives: nasal discharge. Modifying factors: The patient symptoms are alleviated by nothing. It is unknown whether or not the patient has had similar symptoms in the past. 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 Davidson in the past - cath clear at that time. Historical: - Allergies: 08:03 No Known Allergies; iw - Home Meds: 08:03 telmisartan 80 mg oral tab 1 tab once daily [Active]; montelukast 10 mg oral tab 1 tab iw once daily [Active]; Chantix 1 mg oral tab 1 tab 2 times per day [Active]; propranolol 60 mg Oral tab daily [Active]; Eliquis 5 mg oral tab daily [Active]; rosuvastatin 40 mg oral tab 1 tab once daily [Active]; Iron CR 65 mg Oral daily [Active]; aspirin 81 mg Oral TbEC 1 tab once daily [Active]; quetiapine 300 mg oral tab 1 tab once daily [Active]; - PMHx: 08:03 Atrial Fib; Hypertension; COPD; iw - PSHx: 08:03 Cholecystectomy; Hernia repair; iw - Immunization history:: Adult Immunizations up to date. - Ebola Screening: : Patient negative for fever greater than or equal to 101.5 degrees Fahrenheit, and additional compatible Ebola Virus Disease symptoms Patient denies exposure to infectious person Patient denies travel to an Ebola-affected area in the 21 days before illness onset No symptoms or risks identified at this time. - Social history:: Smoking status: Patient uses tobacco products, Patient/guardian denies using alcohol. ROS: 07:55 Constitutional: Negative for fever, chills, and weight loss, +night sweats Eyes: snw Negative for injury, pain, redness, and discharge. 07:55 Neck: Negative for injury, pain, and swelling, Cardiovascular: Negative for left chest pain, palpitations, and edema, right chest with some pain on breathing Abdomen/GI: Negative for abdominal pain, nausea, vomiting, diarrhea, and constipation, Back: Negative for injury and pain, : Negative for injury, bleeding, discharge, and swelling, MS/Extremity: Negative for injury and deformity, Skin: Negative for injury, rash, and discoloration, Neuro: Negative for headache, weakness, numbness, tingling, and seizure. 07:55 ENT: Positive for nasal discharge. 07:55 Respiratory: Positive for cough, with no reported sputum, dyspnea on exertion, shortness of breath, wheezing. Exam: 07:52 Constitutional: This is a well developed, well nourished patient who is awake, alert, snw and in no acute distress. Head/Face: Normocephalic, atraumatic. Eyes: Pupils equal round and reactive to light, extra-ocular motions intact. Lids and lashes normal. Conjunctiva and sclera are non-icteric and not injected. Cornea within normal limits. Periorbital areas with no swelling, redness, or edema. ENT: Nares patent. No nasal discharge, no septal abnormalities noted. Tympanic membranes are normal and external auditory canals are clear. Oropharynx with no redness, swelling, or masses, exudates, or evidence of obstruction, uvula midline. Mucous membranes moist. Neck: Trachea midline, no thyromegaly or masses palpated, and no cervical lymphadenopathy. Supple, full range of motion without nuchal rigidity, or vertebral point tenderness. No Meningismus. Chest/axilla: Normal chest wall appearance and motion. Nontender with no deformity. No lesions are appreciated. Cardiovascular: Irreg irreg rate and rhythm with a normal S1 and S2. No gallops, murmurs, or rubs. Normal PMI, no JVD. No pulse deficits. Respiratory: Lungs have breath sounds bilaterally, crackles to auscultation to right. mild wheezing. Moderate increased work of breathing, mild retractions and nasal flaring. Spouse and pt state this is his norm Back: No spinal tenderness. No costovertebral tenderness. Full range of motion. Skin: Warm, dry with normal turgor. Normal color with no rashes, no lesions, and no evidence of cellulitis. MS/ Extremity: Pulses equal, no cyanosis. Neurovascular intact. Full, normal range of motion. Neuro: Awake and alert, GCS 15, oriented to person, place, time, and situation. Cranial nerves II-XII grossly intact. Motor strength 5/5 in all extremities. Sensory grossly intact. Cerebellar exam normal. Normal gait. Vital Signs: 08:00 BP 152 / 97; Pulse 67; Resp 22 S; Temp 97.0(TE); Pulse Ox 97% on R/A; iw 08:37 BP 138 / 94; Pulse 68; Resp 18; Pulse Ox 100% on R/A; hj 09:10 BP 140 / 95; Pulse 69; Resp 18; Pulse Ox 97% on R/A; hj MDM: 07:46 Patient medically screened. snw 08:59 Data reviewed: vital signs, nurses notes. Data interpreted: Pulse oximetry: on room air snw is 100 %. Interpretation: normal. Counseling: I had a detailed discussion with the patient and/or guardian regarding: the historical points, exam findings, and any diagnostic results supporting the discharge/admit diagnosis, the presence of at least one elevated blood pressure reading (>120/80) during this emergency department visit, lab results, radiology results, the need for outpatient follow up, to return to the emergency department if symptoms worsen or persist or if there are any questions or concerns that arise at home. Special discussion: I have referred the patient to see his PCP for further evaluation of high blood pressure. Based on the history and exam findings, there is no indication for further emergent testing or inpatient evaluation. I discussed with the patient/guardian the need to see the substation operator for further evaluation of the symptoms. I discussed with the patient/guardian the need to see the primary care provider for further evaluation of the symptoms. 03/12 07:52 Order name: Basic Metabolic Panel; Complete Time: 08:53 snw 03/12 07:52 Order name: CBC with Diff; Complete Time: 08:42 snw 03/12 07:52 Order name: LFT's; Complete Time: 08:53 snw 03/12 07:52 Order name: Magnesium; Complete Time: 08:53 snw 03/12 07:52 Order name: NT PRO-BNP; Complete Time: 08:53 snw 03/12 07:52 Order name: PT-INR; Complete Time: 08:45 snw 03/12 07:52 Order name: Troponin (emerg Dept Use Only); Complete Time: 08:53 snw 03/12 07:52 Order name: XRAY Chest (1 view); Complete Time: 10:46 snw 03/12 07:52 Order name: EKG; Complete Time: 07:54 snw 03/12 07:52 Order name: Cardiac monitoring; Complete Time: 07:57 snw 03/12 08:25 Order name: Thyroid Stimulating Hormone; Complete Time: 08:53 EDMS 03/12 07:52 Order name: EKG - Nurse/Tech; Complete Time: 08:22 snw 03/12 07:52 Order name: IV Saline Lock; Complete Time: 08:22 snw 03/12 07:52 Order name: Labs collected and sent; Complete Time: 08:22 snw 03/12 07:52 Order name: O2 Per Protocol; Complete Time: 07:57 snw 03/12 07:52 Order name: O2 Sat Monitoring; Complete Time: 07:57 snw Administered Medications: 08:27 Drug: Albuterol 2.5 mg Route: Inhalation; 08:59 Drug: LaSIX 40 mg Route: PO; 08:59 Follow up: Response: No adverse reaction Disposition: 15:51 Co-signature as Attending Physician, Dagoberto Morales MD. Disposition: 03/12/19 08:57 Discharged to Home. Impression: Fluid overload, unspecified, Atrial fibrillation and flutter - chronic, Chest pain, unspecified - right chest. - Condition is Stable. - Discharge Instructions: Nonspecific Chest Pain, Heart Failure, Potassium Content of Foods, Echocardiogram, Electrocardiography, Hypertension. - Medication Reconciliation Form, Thank You Letter, Antibiotic Education, Prescription Opioid Use form. - Follow up: Jarad Jiménez MD; When: Tomorrow; Reason: Recheck today's complaints, Continuance of care, Re-evaluation by your physician. Follow up: Sheldon Davidson MD; When: 1 week; Reason: Recheck today's complaints, Continuance of care. Signatures: Dispatcher [facility] Katt Dewitt, HOME BUILDER-C HOME BUILDER-Csnw Rashmi Ramirez RN RN Orion Chacko RN RN hj Starr Dagoberto, MD MD gs Corrections: (The following items were deleted from the chart) 08:25 07:57 THYROID STIMULAT HORMONE+C.LAB.BRZ ordered. EDDC EDMS 09:10 08:57 03/12/2019 08:57 Discharged to Home. Impression: Fluid overload, unspecified; hj Atrial fibrillation and flutter - chronic; Chest pain, unspecified - right chest. Condition is Stable. Forms are Medication Reconciliation Form, Thank You Letter, Antibiotic Education, Prescription Opioid Use. Follow up: Jarad Jiménez; When: Tomorrow; Reason: Recheck today's complaints, Continuance of care, Re-evaluation by your physician. Follow up: Sheldon Davidson; When: 1 week; Reason: Recheck today's complaints, Continuance of care. snw
--- NOTE | 2019-03-12 08:58 | ER ---
Nurse's Notes [facility] Name: Storm Beltre Age: 63 yrs Sex: Male : 1955 Arrival Date: 03/12/2019 Time: 07:39 Bed 17 Private MD: Jarad Jiménez T Diagnosis: Fluid overload, unspecified;Atrial fibrillation and flutter-chronic;Chest pain, unspecified-right chest Presentation: 03/12 07:58 Presenting complaint: Patient states: has had cough, runny nose, and right sided chest iw pain X 1 month, had heart cath done on Tuesday by Dr. Davidson, did not need stents. Transition of care: patient was not received from another setting of care. Onset of symptoms was February 2019. Risk Assessment: Do you want to hurt yourself or someone else? Patient reports no desire to harm self or others. Initial Sepsis Screen: Does the patient meet any 2 criteria? RR > 20 per min. Does the patient have a suspected source of infection? No. Patient's initial sepsis screen is negative. Care prior to arrival: None. 07:58 Method Of Arrival: Ambulatory iw 07:58 Acuity: JOSE 2 iw Triage Assessment: 08:15 General: Appears in no apparent distress. uncomfortable, Behavior is calm, cooperative, hj appropriate for age. Pain: Complains of pain in chest. Cardiovascular: Capillary refill < 3 seconds Patient's skin is warm and dry. Historical: - Allergies: 08:03 No Known Allergies; iw - Home Meds: 08:03 telmisartan 80 mg oral tab 1 tab once daily [Active]; montelukast 10 mg oral tab 1 tab iw once daily [Active]; Chantix 1 mg oral tab 1 tab 2 times per day [Active]; propranolol 60 mg Oral tab daily [Active]; Eliquis 5 mg oral tab daily [Active]; rosuvastatin 40 mg oral tab 1 tab once daily [Active]; Iron CR 65 mg Oral daily [Active]; aspirin 81 mg Oral TbEC 1 tab once daily [Active]; quetiapine 300 mg oral tab 1 tab once daily [Active]; - PMHx: 08:03 Atrial Fib; Hypertension; COPD; iw - PSHx: 08:03 Cholecystectomy; Hernia repair; iw - Immunization history:: Adult Immunizations up to date. - Ebola Screening: : Patient negative for fever greater than or equal to 101.5 degrees Fahrenheit, and additional compatible Ebola Virus Disease symptoms Patient denies exposure to infectious person Patient denies travel to an Ebola-affected area in the 21 days before illness onset No symptoms or risks identified at this time. - Social history:: Smoking status: Patient uses tobacco products, Patient/guardian denies using alcohol. Screenin:15 Abuse screen: Denies threats or abuse. Denies injuries from another. Nutritional hj screening: No deficits noted. Tuberculosis screening: No symptoms or risk factors identified. Fall Risk None identified. Assessment: 08:15 Pain: Pain radiates to chest Pain began 1 day ago. hj 08:15 General: Appears in no apparent distress. uncomfortable, Behavior is calm, cooperative, hj appropriate for age. Neuro: Level of Consciousness is awake, alert, obeys commands, Oriented to person, place, time, situation, Appropriate for age. Cardiovascular: Capillary refill < 3 seconds Patient's skin is warm and dry. Respiratory: Airway is patent Respiratory effort is even, unlabored, Respiratory pattern is regular, symmetrical. GI: No signs and/or symptoms were reported involving the gastrointestinal system. : No signs and/or symptoms were reported regarding the genitourinary system. EENT: No signs and/or symptoms were reported regarding the EENT system. Derm: No signs and/or symptoms reported regarding the dermatologic system. Musculoskeletal: No signs and/or symptoms reported regarding the musculoskeletal system. Vital Signs: 08:00 BP 152 / 97; Pulse 67; Resp 22 S; Temp 97.0(TE); Pulse Ox 97% on R/A; iw 08:37 BP 138 / 94; Pulse 68; Resp 18; Pulse Ox 100% on R/A; hj 09:10 BP 140 / 95; Pulse 69; Resp 18; Pulse Ox 97% on R/A; hj ED Course: 07:39 Patient arrived in ED. mr 07:40 Jarad Jiménez MD is Private Physician. mr 07:45 Orion Chacko, RN is Primary Nurse. hj 07:46 [facility] Dew[facility]C [facility] snw 07:46 Dagoberto Morales MD is Attending Physician. snw 07:53 EKG done, by pv design and installation technician. reviewed by Katt Renate SUPERVISOR [employer] BUILDINGS-C. at1 08:00 Triage completed. iw 08:01 Arm band placed on. iw 08:15 Initial lab(s) drawn, by me, sent to lab. Inserted saline lock: 22 gauge in right hj antecubital area, using aseptic technique. Blood collected. 08:15 Patient maintains SpO2 saturation greater than 95% on room air. hj 08:15 color television console monitor on. Pulse ox on. NIBP on. hj 08:15 Patient has correct armband on for positive identification. Placed in gown. Bed in low hj position. Call light in reach. Side rails up X2. Adult w/ patient. 08:20 X-ray completed. Portable x-ray completed in exam room. Patient tolerated procedure sw well. 08:23 XRAY Chest (1 view) In Process Unspecified. EDMS 08:55 Jarda Jiménez MD is Referral Physician. snw 08:56 Sheldon Davidson MD is Referral Physician. snw 09:09 No provider procedures requiring assistance completed. IV discontinued, intact, hj bleeding controlled, No redness/swelling at site. Pressure dressing applied. Administered Medications: 08:27 Drug: Albuterol 2.5 mg Route: Inhalation; hj 08:59 Drug: LaSIX 40 mg Route: PO; hj 08:59 Follow up: Response: No adverse reaction hj Outcome: 08:57 Discharge ordered by . snw 09:09 Discharged to home ambulatory, with family. hj 09:09 Condition: stable 09:09 Discharge instructions given to patient, family, Instructed on discharge instructions, follow up and referral plans. Demonstrated understanding of instructions, follow-up care. 09:10 Patient left the ED. Signatures: Dispatcher [employer] [facility] Katt Dewitt FNP-C SUPERVISOR [employer]ILD[employer]-Csnw Phyllis James Rashmi Alfaro, RN RN iw Ana Stover, trimming cutter machine EKG Tat1 Nikole Hunter Henry, RN RN hj Corrections: (The following items were deleted from the chart) 08:01 07:58 Initial Sepsis Screen: Does the patient meet any 2 criteria? RR > 20 per min. HR iw > 90 bpm. Does the patient have a suspected source of infection? No. Patient's initial sepsis screen is negative. iw 08:01 08:00 BP 152 / 97; Pulse 67bpm; Resp 22bpm; Spontaneous; Pulse Ox 97% RA; Temp 96.9F iw Temporal; iw
--- NOTE | 2019-03-12 09:06 | RAD REPORT ---
EXAM DESCRIPTION: RAD - Chest Single View - 03/12/2019 8:21 am CLINICAL HISTORY: Cough;COPD Chest pain. COMPARISON: Chest Pa And Lat (2 Views) dated 03/06/2019; Chest Pa And Lat (2 Views) dated 05/19/2017; CHEST PA AND LAT 2 VIEW dated 08/17/2008; CHEST SINGLE VIEW dated 08/17/2008 FINDINGS: Portable technique limits examination quality. Mild interstitial pulmonary edema seen. Significant cardiomegaly. No displaced fractures. IMPRESSION: Mild CHF.
[2019-03-12] MEDS ORDERED: FUROSEMIDE 20 MG TABLET ONE (09:12)
--- NOTE | 2019-03-12 12:16 | EKG ---
Test Date: 2019-03-12 Test Time: 07:52:46 Cutting Machine Fixer: HEMAL MEASUREMENT RESULTS: Intervals: Rate: 66 CT: QRSD: 100 QT: 408 QTc: 427 [place]: P: CT: QRS: 37 T: 73 INTERPRETIVE STATEMENTS: Atrial fibrillation Abnormal ECG Compared to ECG 08/17/2008 01:48:03 Sinus rhythm no longer present Electronically Signed On 03-12-19 12:15:54 CDT by Sheldon Davidson
== END 2019-03-12 09:10 | disposition home or self-care (01) ==
LOC: ER 07:37
DX: E87.70 Fluid overload, unspecified (principal); I48.91 Unspecified atrial fibrillation; I48.92 Unspecified atrial flutter; J44.9 Chronic obstructive pulmonary disease, unspecified; I10 Essential (primary) hypertension; Z72.0 Tobacco use; Z79.01 Long term (current) use of anticoagulants; Z79.82 Long term (current) use of aspirin
CPT/HCPCS: 36415; 71045; 80048; 80076; 83735; 83880; 84443; 84484; 85025; 85610; 93005; 99285